=== PATIENT | female | born 1945 | race Two or more races ===

== ENCOUNTER 2018-03-03 21:06 | Emergency (ER) | payer MEDICARE, OTHER ==
[~2018-03-03] VITALS: Ht 157.5 cm; Wt 68.5 kg
[~2018-03-03 21:06] MED LIST: BUSP5TAB3 PO; CLID1CAP PO; FENO134C PO; GLYB2.5T4 PO; METO25TA20 PO; RIVA10TA PO; ROPI0.5T2 PO; VALS1TAB6 PO
[2018-03-03] MEDS ORDERED: ZOLP5TAB8 PO (21:15)
[2018-03-03] MEDS ORDERED: LIPA1CAP15 PO (21:15)
[2018-03-03] MEDS ORDERED: MELA3TAB PO (21:15)
[2018-03-03] MEDS ORDERED: ASPI-1169 PO (21:15)
[2018-03-03] MEDS ORDERED: ALPR0.5T8 PO (21:15)
[2018-03-03] MEDS ORDERED: LORA10TA7 PO (21:15)
[2018-03-03] MEDS ORDERED: CLON0.5T12 PO (21:15)
[2018-03-03] MEDS ORDERED: SIMV20TA6 PO (21:15)
[2018-03-03] MEDS ORDERED: BENZ1TAB7 PO (21:15)
[2018-03-03] MEDS ORDERED: ATEN50TA PO (21:15)
--- NOTE | 2018-03-03 21:16 | NUR ---
BB RA FROM HOME FOR WORSENING INVOLUNTARY MOVEMENTS OF MOUTH X 2 WKS. PT AO RR EVEN AND UNLABORED. NO SOB NOTED. NAD NOTED. NO NVD AT THIS TIME. PT PLACED ON MONITOR. PER DAUGHTER "PT DX WITH TARDIVE DYSKINESIA X 1 MONTH AGO THEN PLACED ON COGENTIN, THEN NOTED PT WITH WORSENING INVOLUNTARY MOVEMENTS. PT RECENTLY START ON BENZTROPINE AND CLONAZEPAM X 5 DAYS AGO"
--- NOTE | 2018-03-03 21:35 | NUR ---
LAB AT BEDSIDE FOR BLOOD DRAW
[2018-03-03 21:36] LABS: BASOPHILS % (AUTO) 0.1 % (0.0-2.0); EOSINOPHILS % (AUTO) 1.5 % (0.0-6.0); HEMATOCRIT 42 % (33-45); HEMOGLOBIN 14.1 g/dL (11.5-14.8); LYMPHOCYTES # (AUTO) 1.4 /CMM (0.8-4.8); LYMPHOCYTES % (AUTO) 14.4 % (20.0-44.0); MEAN CORPUSCULAR HGB CONC 34 g/dl (31.0-36.0); MEAN CORPUSCULAR VOLUME 77 fL (82-100); MONOCYTES # (AUTO) 0.8 /CMM (0.1-1.30); MONOCYTES % (AUTO) 8.9 % (2.0-12.0); NEUTROPHILS # (AUTO) 7.1 /CMM (1.8-8.9); NEUTROPHILS % (AUTO) 75.1 % (43.0-81.0); PLATELET COUNT (AUTO) 346 /CMM (150-450); RED BLOOD CELL COUNT(AUTO) 5.36 MIL/uL (4.0-5.2); WHITE BLOOD COUNT (AUTO) 9.4 K/uL (4.3-11.0)
[2018-03-03 21:46] LABS: CALCIUM, SERUM 8.6 mg/dL (8.5-10.1); CARBON DIOXIDE 29 mmol/L (21-32); CHLORIDE 104 mmol/L (98-107); CREATININE 0.9 mg/dL (0.6-1.3); GLUCOSE 98 mg/dL (74-106); POTASSIUM 3.8 mmol/L (3.5-5.1); SODIUM SERUM 141 mmol/L (136-145); UREA NITROGEN, BLOOD 10 mg/dL (7-18)
[2018-03-03 21:53] LABS: ALANINE AMINOTRANSFERASE 16 U/L (12-78); ALBUMIN 3.3 g/dL (3.4-5.0); ALKALINE PHOSPHATASE 41 U/L (46-116); ASPARTATE AMINOTRANSFERASE 16 U/L (15-37); BILIRUBIN,DIRECT 0.2 mg/dL (0.0-0.2); BILIRUBIN,TOTAL 1.1 mg/dL (0.2-1.0); TOTAL PROTEIN, SERUM 6.8 g/dL (6.4-8.2)
--- NOTE | 2018-03-03 22:12 | NUR ---
Dr. Bon Hill # [phone]
--- NOTE | 2018-03-03 23:27 | NUR ---
PER RISHABH OKAY TO GIVE PT WATER
--- NOTE | 2018-03-04 | NUR ---
SARIAH KEATING AT BEDSIDE SPEAKING TO PT REGARDING RESULTS.
--- NOTE | 2018-03-04 00:03 | NUR ---
Patient discharged to home in stable condition. Written and verbal after care instructions given. Patient verbalizes understanding of instruction. ambulatory with a steady gait. accompanied by daughter.
[2018-03-04 00:04] VITALS: BP 132/77
== END 2018-03-04 00:05 | disposition home or self-care (01) ==
LOC: ER 21:18
DX: G24.01 Drug induced subacute dyskinesia (principal); I10 Essential (primary) hypertension
CPT/HCPCS: 36415; 80048-TC; 80076-TC; 85025-TC; A4606; Z7610

== ENCOUNTER 2021-08-29 20:58 | Inpatient (IN) | payer MEDICARE, OTHER ==
[~2021-08-29] VITALS: Ht 157.5 cm; Wt 48.5 kg
[~2021-08-29 20:58] MED LIST changes: +ALPR0.5T8 PO; +ASPI-1169 PO; +ATEN50TA PO; +BENZ1TAB7 PO; -BUSP5TAB3 PO; -CLID1CAP PO; +CLON0.5T4 PO; -FENO134C PO; -GLYB2.5T4 PO; +LIPA1CAP15 PO; +LORA10TA7 PO; +MELA3TAB41 PO; -ROPI0.5T2 PO; +SIMV-46 PO; -VALS1TAB6 PO; +ZOLP5TAB8 PO
--- NOTE | 2021-08-29 21:30 | NUR ---
[id number] FROM HOME C/O RUQ ABD PAIN 2x DAYS. DENIES N/V/D. PATIENT ALERT AND ORIENTED X3. PATIENT ARRIVED ON STRETCHER, BUT IS USUALLY AMBULATORY AT HOME. DAUGHTER AT BEDSIDE FOR TRANSLATION.
--- NOTE | 2021-08-29 21:30 | NUR ---
BLOOD COLLECTED AND SENT TO LAB
--- NOTE | 2021-08-29 21:41 | NUR ---
URINE COLLECTED AND SENT TO LAB
[2021-08-29 21:46] LABS: BASOPHILS # (AUTO) 0.4 K/uL (0.0-0.2); BASOPHILS % (AUTO) 1.1 % (0.0-2.0); EOSINOPHILS % (AUTO) 1.6 % (0.0-6.0); HEMATOCRIT 47 % (33-45); HEMOGLOBIN 13.3 g/dL (11.5-14.8); LYMPHOCYTES # (AUTO) 1.4 K/uL (0.8-4.8); LYMPHOCYTES % (AUTO) 3.9 % (20.0-44.0); MEAN CORPUSCULAR HGB CONC 29 g/dl (31.0-36.0); MEAN CORPUSCULAR VOLUME 64 fL (82-100); MONOCYTES # (AUTO) 2.4 K/uL (0.1-1.30); MONOCYTES % (AUTO) 6.7 % (2.0-12.0); NEUTROPHILS % (AUTO) 86.7 % (43.0-81.0); PLATELET COUNT (AUTO) 608 K/uL (150-450); RED BLOOD CELL COUNT(AUTO) 7.32 MIL/uL (4.0-5.2)
[2021-08-29 21:52] LABS: WHITE BLOOD COUNT (AUTO) 35.7 K/uL (4.3-11.0)
--- NOTE | 2021-08-29 21:52 | NUR ---
WBC 35.7
[2021-08-29 21:55] LABS: CALCIUM, SERUM 8.4 mg/dL (8.5-10.1); CARBON DIOXIDE 28 mmol/L (21-32); CHLORIDE 107 mmol/L (98-107); GLUCOSE 181 mg/dL (74-106); SODIUM SERUM 143 mmol/L (136-145); UREA NITROGEN, BLOOD 53 mg/dL (7-18)
[2021-08-29] MEDS ORDERED: MEROPENEM 1,000 MG in IV NS 0.9% 100 ML IV ONE (22:00)
[2021-08-29] MEDS ORDERED: NS 0.9% IV ONE (22:00)
[2021-08-29 22:01] LABS: ALANINE AMINOTRANSFERASE 10 U/L (12-78); ALKALINE PHOSPHATASE 76 U/L (46-116); ASPARTATE AMINOTRANSFERASE 17 U/L (15-37); BILIRUBIN,DIRECT 0.2 mg/dL (0.0-0.2); BILIRUBIN,TOTAL 0.5 mg/dL (0.2-1.0); LIPASE 87 U/L (73-393)
[2021-08-29] MEDS ORDERED: MEROPENEM 1 G VIAL IV ONE (22:10)
[2021-08-29 22:13] LABS: BILIRUBIN,URINE SMALL (NEGATIVE); COLOR,URINE YELLOW (YELLOW); LEUKOCYTE ESTERASE ,URINE Negative (NEGATIVE); NITRITE, URINE Negative (NEGATIVE); PROTEIN,URINE 30 mg/dl (NEGATIVE); UGLUCOSE Negative (NEGATIVE); UROBILINOGEN,URINE 0.2 EU/dL (0.2)
[2021-08-29 22:17] LABS: BACTERIA,URINE Rare /HPF (None Seen); RBC,URINE NONE SEEN /HPF (0-2); SQUAMOUS EPITHELIAL CELL,UR Few /HPF (None Seen); WBC,URINE NONE SEEN /HPF (0-3)
[2021-08-29 22:26] LABS: LYMPHOCYTES % (MANUAL) 5 % (16-48); MONOCYTES % (MANUAL) 8 % (0-11.0); NEUTROPHILS % (MANUAL) 87 (42-76)
--- NOTE | 2021-08-29 22:36 | NUR ---
ULTRA SOUND AT BEDSIDE
--- NOTE | 2021-08-29 22:36 | NUR ---
COVID SWAB DONE AND SENT TO LAB
[2021-08-29] MEDS ORDERED: ASPIRIN 325 MG TABLET PO ONE (23:00)
--- NOTE | 2021-08-29 23:01 | NUR ---
PT RETURNED FROM CT
[2021-08-29] MEDS ORDERED: ASPIRIN 325 MG TABLET ONE (23:06)
[2021-08-30] MEDS ORDERED: IOHEXOL-300 100 ML VIAL IV ONE (00:18)
[2021-08-30] MEDS ORDERED: IV NS 0.9% 250 ML IV ONE (00:18)
[2021-08-30] MEDS ORDERED: CT SWABBABLE VALVE TRANS SET 1 EA INFUS.SET MC ONE (00:18)
--- NOTE | 2021-08-30 01:23 | NUR ---
PAGED DR PEREZ
--- NOTE | 2021-08-30 01:46 | NUR ---
RE PAGED DR PEREZ
--- NOTE | 2021-08-30 02:30 | NUR ---
DR MONTEZ ON THE PHONE W, DR PEREZ, SURGEON
--- NOTE | 2021-08-30 03:12 | NUR ---
REPORT GIVEN TO JOO VALENTE
[2021-08-30] MEDS ORDERED: Z GUARD REMEDY 2 OZ OINT TP PRN (03:30)
[2021-08-30] MEDS ORDERED: ONDANSETRON HCL/PF 4 MG/2 ML VIAL IVP PRN (03:30)
--- NOTE | 2021-08-30 03:51 | NUR ---
lizandro pt to 311
--- NOTE | 2021-08-30 03:52 | NUR ---
transferring pt via acls
[2021-08-30 04:00] VITALS: BP 109/58
[2021-08-30] MEDS ORDERED: LIPASE/PROTEASE/AMYLASE 1 EACH CAPSULE.DR PO PRN (04:00)
[2021-08-30 04:15] VITALS: BP 109/58
--- NOTE | 2021-08-30 04:15 | NUR ---
TELE/RN ADMITTING NOTE RECEIVED REPORT FROM JOB SITE SUPERVISOR BRYON. PATIENT ARRIVED TO UNIT VIA GURNEY AND 2 STAFF MEMBERS. PATIENT ACCOMPANIED TO ROOM 311-2 WITH ADMITTING DX OF NSTEMI AND PNA. PATIENT IS ALERT AND ORIENTED X 3. ABLE TO MAKE NEEDS KNOWN. PRIMARILY CYPRIOT SPEAKING BUT UNDERSTANDS SOME YORUBA. DENIES PAIN AT THIS TIME. O2 SATS BETWEEN 86-89% ON ROOM AIR. PATIENT PLACED ON 2L O2 VIA NC WITH O2 SATS BETWEEN 96-99%. NO S/SX OF RESPIRATORY DISTRESS NOTED. IV ACCESS TO LEFT AC #20G INTACT, PATENT AND SALINE LOCKED. TELE MONITOR CONNECTED WITH CURRENT READING SR HR 86. SKIN CHECK PERFORMED ON ADMISSION WITH NO SKIN ISSUES NOTED. PATIENT ORIENTED TO ROOM, CALL LIGHT AND UNIT. CALL LIGHT WITHIN REACH. ASPIRATION, FALL AND SAFETY PRECAUTIONS MAINTAINED. WILL CONTINUE TO MONITOR.
[2021-08-30] MEDS ORDERED: VANCOMYCIN 1 GM VIAL ONE (04:16)
[2021-08-30] MEDS: IV NS 0.9% 1,000 ML IV SCH ×2 (04:26→14:31)
[2021-08-30] MEDS ORDERED: VANCOMYCIN 1 GM in IV D5W 250ml IV ONE (04:30)
[2021-08-30] MEDS ORDERED: MEROPENEM 1 G in IV NS 0.9% 100 ML IV ONE (06:00)
[2021-08-30] MEDS ORDERED: MEROPENEM 1 G VIAL IV ONE (06:30)
--- NOTE | 2021-08-30 06:50 | NUR ---
TELE/RN CLOSING NOTE PATIENT CURRENTLY SLEEPING IN BED. ALERT AND ORIENTED X 3. ABLE TO MAKE NEEDS KNOWN. DENIES PAIN AT THIS TIME. CONTINUES ON 2L O2 VIA NC WITH NO S/SX OF RESPIRATORY DISTRESS NOTED. IV ACCESS TO LEFT AC #20G INTACT AND PATENT. CONTINUES ON IVF NS @ 100ML/HR. CONTINUES ON IV ABX. CALL LIGHT WITHIN REACH. ASPIRATION, FALL AND SAFETY PRECAUTIONS MAINTAINED. WILL ENDORSE PLAN OF CARE TO ONCOMING SHIFT.
--- NOTE | 2021-08-30 07:30 | NUR ---
FISH ROD MAKER OPENING NOTES RECEIVED PATIENT AWAKE IN BED IN NO ACUTE SIGNS OF DISTRESS. HOB ELEVATED. A/O X3. BENGALI SPEAKING, DENIES PAIN OR DISCOMFORTS AT THIS TIME. ON O2 VIA N/C @ 2LPM, TOLERATING WELL, BREATHING EVEN AND UNLABORED. ON TELE-MONITOR WITH CURRENT READING OF NSR, HR ON THE 80'S, NO C/O CARDIAC DISTRESS VOICED. IVF ON LAC G#20 INTACT AND PATENT WITH IVF OF NS @ 100ML/HR INFUSING WELL, NO S/SX OF INFILTRATION NOTED. SAFETY MEASURES IN PLACE: BED IN LOWEST LOCKED POSITION, SIDE RAILS UP X2 AND CALL LIGHT WITHIN REACH. WILL CONTINUE TO MONITOR PT ACCORDINGLY.
[2021-08-30 08:00] VITALS: BP 105/58
[2021-08-30] MEDS: LORATADINE 10 MG TABLET PO SCH (08:45)
[2021-08-30] MEDS: SIMVASTATIN 20 MG TABLET PO SCH (08:45)
[2021-08-30] MEDS: ASPIRIN 81 MG TAB.CHEW PO SCH (08:45)
[2021-08-30] MEDS: BENZTROPINE MESYLATE (1 MG) 1 MG TABLET PO SCH ×2 (08:45→17:02)
[2021-08-30] MEDS: LIPASE/PROTEASE/AMYLASE 1 EACH CAPSULE.DR PO SCH ×3 (08:46→17:02)
[2021-08-30] MEDS: METOPROLOL TARTRATE 25 MG TABLET PO SCH ×2 (08:47→21:24)
[2021-08-30] MEDS: ATENOLOL 50 MG TABLET PO SCH (08:48)
[2021-08-30] MEDS: clonazePAM 0.5 MG TABLET PO SCH (09:00)
[2021-08-30] MEDS ORDERED: ALPRAZOLAM 0.5 MG TABLET PO SCH (09:00)
--- NOTE | 2021-08-30 10:00 | NUR ---
RN NOTES LATEST TROPONIN TAKEN AT 0930 WAS 0.087 FROM 0.075, DR WHALEN MADE AWARE AND ACKNOWLEDGED.
--- NOTE | 2021-08-30 10:43 | NUR ---
RN NOTES PT SEEN AND EVALUATED BY DR CASTELLANOS WITH ORDER TO DO U/S OF SPLEEN.
[2021-08-30 12:00] VITALS: BP 107/59
[2021-08-30] MEDS ORDERED: MEROPENEM 1 G in IV NS 0.9% 100 ML IV SCH (13:00)
--- NOTE | 2021-08-30 13:21 | NUR ---
RN NOTES PT'S DAUGHTER BROUGHT PT'S HOME MEDICATION AUSTEDO 9MG FOR TARDIVE DYSKINESIA AND PT'S TAKING IT Q 12HRS. DR CASTELLANOS MADE AWARE WITH ORDER TO CONTINUE MEDICATION
[2021-08-30 16:00] VITALS: BP 110/57
[2021-08-30] MEDS: MEROPENEM 500 MG in IV NS 0.9% 100 ML IV SCH (17:03)
--- NOTE | 2021-08-30 18:19 | NUR ---
RN NOTES URINE SPECIMEN COLLECTED AND CALLED LAB TO DINING ROOM COORDINATOR THE SPECIMEN.
--- NOTE | 2021-08-30 18:41 | NUR ---
PRESS CUTTER CLOSING NOTES PATIENT IN BED RESTING AT MODERATE HIGH BACKREST POSITION. DAUGHTER AT BEDSIDE. A/O X2-3. COMORAN SPEAKING. CONFUSED ON AND OFF. MAINTAINED ON O2 VIA N/C @ 2LPM, TOLERATING WELL, BREATHING EVEN AND UNLABORED. ON TELE-MONITOR WITH CURRENT READING OF NSR, HR ON THE 80'S, NO C/O CARDIAC DISTRESS VOICED. IVF ACCESS ON LAC G#20 INTACT AND PATENT WITH IVF OF NS @ 100ML/HR AND IV ABX MERREM AT 33.33ML/HR INFUSING, NO S/SX OF INFILTRATION NOTED. ALL NEEDS AND CARE PROVIDED WELL. SAFETY MEASURES IN PLACE: BED IN LOWEST LOCKED POSITION, BED ALARM ON, SIDE RAILS UP X2 AND CALL LIGHT WITHIN REACH. WILL ENDORSE CONTINUITY OF CARE TO APPLICATIONS ENGINEERING MANAGER NURSE.
[2021-08-30 20:00] VITALS: BP 128/82
[2021-08-30] MEDS: AUSTEDO 9 MG PO SCH (22:00)
[2021-08-30] MEDS ORDERED: MELATONIN 3 MG TABLET PO SCH (22:00)
[2021-08-30] MEDS: ZOLPIDEM TARTRATE 5 MG TABLET PO PRN (22:07)
[2021-08-30 23:55] LABS: CREATININE, URINE 129.1 MG/DL (30.0-125.0); URINE TOTAL PROTEIN 88.8 mg/dL (0-11.9)
[2021-08-31] VITALS: BP 112/58
[2021-08-31] MEDS: IV NS 0.9% 1,000 ML IV SCH ×3 (00:51→14:23)
[2021-08-31 04:00] VITALS: BP 129/58
[2021-08-31] MEDS: MEROPENEM 500 MG in IV NS 0.9% 100 ML IV SCH ×2 (05:27→17:16)
[2021-08-31] MEDS: VANCOMYCIN 500 MG in IV D5W 100 ML IV SCH (05:30)
--- NOTE | 2021-08-31 05:58 | NUR ---
REGIONAL GUIDE NOTES AWAKE, STILL CONFUSED. NOT IN ANY DISTRESS. NO SOB NOTED. NO S/SX OF ANY PAIN OR DISCOMFORT AT THIS TIME. ON TELE SR @ 96 WITH IVF INFUSING WELL. AM CARE DONE. MONITORED ACCORDINGLY WITH SITTER AT BEDSIDE. CALL LIGHT WITHIN REACH. BED IN LOWEST POSITION. SR UP X 3 WITH BED ALARM ON FOR SAFETY. WILL ENDORSE TO NEXT SHIFT.
[2021-08-31 07:21] LABS: CALCIUM, SERUM 7.6 mg/dL (8.5-10.1); CARBON DIOXIDE 21 mmol/L (21-32); CHLORIDE 112 mmol/L (98-107); CREATININE 2.6 mg/dL (0.6-1.3); GLUCOSE 155 mg/dL (74-106); MAGNESIUM 2.5 mg/dL (1.8-2.4); PHOSPHORUS 4.5 mg/dL (2.5-4.9); POTASSIUM 4.5 mmol/L (3.5-5.1); SODIUM SERUM 144 mmol/L (136-145); UREA NITROGEN, BLOOD 44 mg/dL (7-18)
[2021-08-31 07:24] LABS: CHOLESTEROL 108 mg/dL (<200); HDL CHOLESTEROL 22 mg/dL (40-60); LDL 62 mg/dL (0-99); TRIGLYCERIDES 134 mg/dL (30-150)
--- NOTE | 2021-08-31 07:40 | NUR ---
RN OPENING NOTES Patient seen comfortably lying in bed, no SOB, no apparent distress noted, breathing even and unlabored, denies any pain or discomfort at this time. Call light left within reach, safety precautions in place, brakes locked, side rails up X 2, will monitor closely for any changes.
[2021-08-31 08:00] VITALS: BP 114/56
[2021-08-31 08:38] LABS: BASOPHILS # (AUTO) 0.4 K/uL (0.0-0.2); BASOPHILS % (AUTO) 1.2 % (0.0-2.0); EOSINOPHILS % (AUTO) 2.3 % (0.0-6.0); HEMATOCRIT 41 % (33-45); HEMOGLOBIN 11.6 g/dL (11.5-14.8); LYMPHOCYTES # (AUTO) 1.4 K/uL (0.8-4.8); LYMPHOCYTES % (AUTO) 4.1 % (20.0-44.0); MEAN CORPUSCULAR HGB CONC 29 g/dl (31.0-36.0); MEAN CORPUSCULAR VOLUME 65 fL (82-100); MONOCYTES # (AUTO) 2.4 K/uL (0.1-1.30); MONOCYTES % (AUTO) 7.3 % (2.0-12.0); NEUTROPHILS # (AUTO) 28.5 K/uL (1.8-8.9); NEUTROPHILS % (AUTO) 85.1 % (43.0-81.0); PLATELET COUNT (AUTO) 801 K/uL (150-450); RED BLOOD CELL COUNT(AUTO) 6.24 MIL/uL (4.0-5.2)
--- NOTE | 2021-08-31 09:25 | NUR ---
Received a call from laboratory spoke to Meseret, regarding patients WBC level which resulted to 33.5. Patient seen comfortably lying in bed, no apparent distress noted, afebrile, no chills noted, hospitalist made aware and acknowledged lab results, will continue to monitor for any changes.
[2021-08-31 09:27] LABS: WHITE BLOOD COUNT (AUTO) 33.5 K/uL (4.3-11.0)
[2021-08-31] MEDS: LORATADINE 10 MG TABLET PO SCH (10:21)
[2021-08-31] MEDS: ASPIRIN 81 MG TAB.CHEW PO SCH (10:21)
[2021-08-31] MEDS: SIMVASTATIN 20 MG TABLET PO SCH (10:21)
[2021-08-31] MEDS: LIPASE/PROTEASE/AMYLASE 1 EACH CAPSULE.DR PO SCH ×3 (10:21→17:10)
[2021-08-31] MEDS: BENZTROPINE MESYLATE (1 MG) 1 MG TABLET PO SCH ×2 (10:21→17:10)
[2021-08-31] MEDS: clonazePAM 0.5 MG TABLET PO SCH (10:21)
[2021-08-31] MEDS: ATENOLOL 50 MG TABLET PO SCH (10:22)
[2021-08-31] MEDS: METOPROLOL TARTRATE 25 MG TABLET PO SCH ×2 (10:22→20:26)
[2021-08-31] MEDS: AUSTEDO 9 MG PO SCH ×2 (10:23→20:26)
[2021-08-31 11:10] LABS: EOSINOPHILS % (MANUAL) 4 % (0-4); LYMPHOCYTES % (MANUAL) 4 % (16-48); MONOCYTES % (MANUAL) 7 % (0-11.0); NEUTROPHILS % (MANUAL) 85 (42-76)
[2021-08-31 12:00] VITALS: BP 112/61
[2021-08-31 16:00] VITALS: BP 103/56
[2021-08-31] MEDS: ACETAMINOPHEN 325 MG TABLET PO PRN (18:31)
--- NOTE | 2021-08-31 18:41 | NUR ---
RN CLOSING NOTES Patient in bed, AO X 1, with episodes of forgetfulness and confusion, reorientation provided as needed, no apparent distress noted, no SOB, respirations even and unlabored, no dizziness, no palpitations, denies any pain or discomfort. Due medications given per MD order, tolerating well. Aspiration precautions observed, frequent visual checks rendered, frequent repositioning done, all needs anticipated, kept clean and dry, call light left within reach, safety precautions in place, patient has a 1:1 sitter at bedside, brakes locked, side rails up X 2, will endorse to next shift for continuity of care.
--- NOTE | 2021-08-31 19:45 | NUR ---
telecom field technician opening notes Received Pt from morning nurse. Pt is resting in bed comfortably. Pt is A/O x 1, confused and forgetful. Respiration is normal in 4 L NC. No SOB. No S/S of distress noted. IV site at LAC# 20 is clean, intact and infusing well NS @ 100 ml/hr. Tele monitor showed SR hr at 80. No sitter at the bed side. safety precautions is maintained. Bed at low position, brakes locked, side rails upX3 and call light is within reach. Will continue to monitor.
[2021-08-31 20:00] VITALS: BP 126/57
--- NOTE | 2021-08-31 20:11 | NUR ---
putty and caulking supervisor notes Pt is seen and examined by Dr. Gaytan.
[2021-08-31] MEDS: ZOLPIDEM TARTRATE 5 MG TABLET PO PRN (21:55)
[2021-09-01] VITALS: BP 120/61
--- NOTE | 2021-09-01 00:50 | NUR ---
RN notes Pt's daughter named Anait called and asked about Pt's. Informed Pt's daughter, VS is stable, afebrile, took her meds and sleeping comfortably. Pt's daughter verbalize understanding and appreciate the info.
[2021-09-01 04:00] VITALS: BP_SYST 133; BP_DIAS 72; BP_DIAS 76
[2021-09-01] MEDS: IV NS 0.9% 1,000 ML IV SCH (04:30)
[2021-09-01] MEDS: MEROPENEM 500 MG in IV NS 0.9% 100 ML IV SCH ×2 (05:01→17:10)
[2021-09-01] MEDS: ACETAMINOPHEN 325 MG TABLET PO PRN ×2 (06:23→15:43)
--- NOTE | 2021-09-01 06:23 | NUR ---
RN notes Pt is moaning, restless and guarded. Administered tylenol 650 mg as ordered for pain. Safety precautions is maintained. Will continue to monitor.
[2021-09-01 06:27] LABS: BASOPHILS # (AUTO) 0.4 K/uL (0.0-0.2); BASOPHILS % (AUTO) 1.4 % (0.0-2.0); EOSINOPHILS % (AUTO) 1.2 % (0.0-6.0); HEMATOCRIT 41 % (33-45); HEMOGLOBIN 11.5 g/dL (11.5-14.8); LYMPHOCYTES # (AUTO) 1.4 K/uL (0.8-4.8); LYMPHOCYTES % (AUTO) 4.4 % (20.0-44.0); MEAN CORPUSCULAR HGB CONC 28 g/dl (31.0-36.0); MEAN CORPUSCULAR VOLUME 65 fL (82-100); MONOCYTES # (AUTO) 2.4 K/uL (0.1-1.30); MONOCYTES % (AUTO) 7.6 % (2.0-12.0); NEUTROPHILS # (AUTO) 26.6 K/uL (1.8-8.9); NEUTROPHILS % (AUTO) 85.4 % (43.0-81.0); RED BLOOD CELL COUNT(AUTO) 6.22 MIL/uL (4.0-5.2)
--- NOTE | 2021-09-01 06:35 | NUR ---
RN notes Received a phone call from Eliseo heredia. Eliseo informed Pt's WBC 31.2.
--- NOTE | 2021-09-01 06:35 | NUR ---
RN notes Called lab to get result for courtneyo. Awaiting for result.
--- NOTE | 2021-09-01 06:36 | NUR ---
RN notes Received a phone call from Eliseo herrera. Pt PLT is [phone].
[2021-09-01 06:38] LABS: PLATELET COUNT (AUTO) 928 K/uL (150-450); WHITE BLOOD COUNT (AUTO) 31.2 K/uL (4.3-11.0)
[2021-09-01 06:57] LABS: CALCIUM, SERUM 7.8 mg/dL (8.5-10.1); CARBON DIOXIDE 23 mmol/L (21-32); CHLORIDE 115 mmol/L (98-107); CREATININE 2.8 mg/dL (0.6-1.3); GLUCOSE 137 mg/dL (74-106); MAGNESIUM 2.5 mg/dL (1.8-2.4); PHOSPHORUS 4.7 mg/dL (2.5-4.9); POTASSIUM 4.8 mmol/L (3.5-5.1); SODIUM SERUM 148 mmol/L (136-145); UREA NITROGEN, BLOOD 43 mg/dL (7-18)
[2021-09-01 07:00] LABS: FERRITIN 130 ng/mL (8-388)
--- NOTE | 2021-09-01 07:00 | NUR ---
teleradiologist closing notes Pt is resting in bed comfortably. Pt is A/O x 1, confused and forgetful. Respiration is normal in 4 L NC. No SOB. No S/S of distress noted. VS is stable. IV site at L hand# 22 is clean, intact and infusing well NS @ 100 ml/hr. Tele monitor showed SR hr at 87. Routine meds were given as ordered. All need met and attended. Safety precautions is maintained. Bed at low position, brakes locked, side rails upX3 and call light is within reach. Will endorse to am nurse for BARTOLO.
[2021-09-01] MEDS: VANCOMYCIN 500 MG in IV D5W 100 ML IV SCH (07:18)
[2021-09-01 07:22] LABS: LYMPHOCYTES % (MANUAL) 3 % (16-48); MONOCYTES % (MANUAL) 3 % (0-11.0); NEUTROPHILS % (MANUAL) 94 (42-76)
--- NOTE | 2021-09-01 07:30 | NUR ---
RN OPENING NOTES: RECEIVED PATIENT IN BED LYING. VIETNAMESE SPEAKING PATIENT. ALERT AND ORIENTED TIMES 1. AWAKE AND RESPONDS UPON CALLING HER NAME.NO PAIN NOTED.NO FACIAL GRIMACING NOTED. BREATHING EVEN AND UNLABORED. NO SOB NOTED. NO RESPIRATORY DISTRESS NOTED. TELE PATIENT. SR = 86. SKIN INTACT AND PATENT .IV ON LEFT HAND # 22 INTACT AND PATENT.NO BLEEDING NO SWELLING NOTED. SAFETY MEASURES IN PLACE, BED IN THE LOWEST POSITION AND LOCKED. TABLE AND CALL LIGHT WITHIN REACH . WILL CONTINUE TO MONITOR.
[2021-09-01 08:00] VITALS: BP 111/62
[2021-09-01] MEDS: LIPASE/PROTEASE/AMYLASE 1 EACH CAPSULE.DR PO SCH ×4 (08:00→17:09)
[2021-09-01] MEDS: LORATADINE 10 MG TABLET PO SCH ×2 (08:19→09:00)
[2021-09-01] MEDS: clonazePAM 0.5 MG TABLET PO SCH ×2 (08:19→09:00)
[2021-09-01] MEDS: ASPIRIN 81 MG TAB.CHEW PO SCH ×2 (08:19→09:00)
[2021-09-01] MEDS: BENZTROPINE MESYLATE (1 MG) 1 MG TABLET PO SCH ×3 (08:19→17:09)
[2021-09-01] MEDS: ATENOLOL 50 MG TABLET PO SCH ×2 (08:20→09:00)
[2021-09-01] MEDS: AUSTEDO 9 MG PO SCH ×3 (08:31→21:05)
[2021-09-01] MEDS: SIMVASTATIN 20 MG TABLET PO SCH ×2 (08:34→09:00)
[2021-09-01] MEDS: METOPROLOL TARTRATE 25 MG TABLET PO SCH ×3 (08:35→21:00)
--- NOTE | 2021-09-01 09:30 | NUR ---
JOO NOTES DUE MEDS AT O800 AND 0900 NOT GIVEN DUE TO PATIENT IS SPITTING OUT AND PATIENT IS SLEEPY. Addendum: 09/01/21 at 1046 by AYALA BEDOYA RN CHARGE NURSE AWARE OF THE PATIENT CURRENT STATUS.
[2021-09-01] MEDS: IV 1/2NS 1000 ML 1,000 ML IV PRN ×2 (10:07→23:13)
[2021-09-01 10:44] LABS: IRON, SERUM 13 ug/dl (50-175); TOTAL IRON BINDING CAPACITY 386 ug/dl (250-450)
[2021-09-01 12:00] VITALS: BP 117/50
--- NOTE | 2021-09-01 12:33 | NUR ---
RN NOTES PATIENT'S IV ON LEFT HAND WAS NOTED TO BE LEAKING, REMOVED IV ACCESS, STARTED A NEW LINE ON PATIENT'S RIGHT HAND USING G#22 IV CATHETER. PATENT AND FLUSHES WELL.
[2021-09-01 16:00] VITALS: BP 110/60
--- NOTE | 2021-09-01 18:30 | NUR ---
RN CLOSING NOTES: PATIENT IN BED AWAKE. BENGALI SPEAKING PATIENT. ALERT AND ORIENTED TIMES 1. AWAKE AND RESPONDS UPON CALLING HER NAME.NO PAIN NOTED.NO FACIAL GRIMACING NOTED. BREATHING EVEN AND UNLABORED. NO SOB NOTED. NO RESPIRATORY DISTRESS NOTED. TELE PATIENT. SR = 91 SKIN INTACT AND PATENT .IV ON RIGHT HAND # 22 INTACT AND PATENT.NO BLEEDING NO SWELLING NOTED. SAFETY MEASURES IN PLACE, BED IN THE LOWEST POSITION AND LOCKED. TABLE AND CALL LIGHT WITHIN REACH . MEDS GIVEN ORDERED. TOLERATED WELL.LAUREL ENDORSE TO ONCOMING NURSE FOR CONTINUOUS OF THE CARE.
--- NOTE | 2021-09-01 19:30 | NUR ---
TELE/RN OPENING NOTE RECEIVED PATIENT SLEEPING IN BED. ALERT AND ORIENTED X 1. PRIMARILY YAKUT SPEAKING. NO S/SX OF PAIN NOTED AT THIS TIME. CONTINUES ON O2 4L VIA NC WITH NO S/SX OF RESPIRATORY DISTRESS NOTED. IV ACCESS TO RIGHT HAND #22G INTACT AND PATENT. CONTINUES ON IVF 1/2 NS @ 100ML/HR. CONTINUES ON IV ABX. CALL LIGHT WITHIN REACH. ASPIRATION, FALL AND SAFETY PRECAUTIONS MAINTAINED. WILL CONTINUE TO MONITOR.
[2021-09-01 20:00] VITALS: BP 99/44
[2021-09-02] VITALS (8 sets, daily range): BP systolic 94–140; BP diastolic 51–92
[2021-09-02] MEDS: ACETAMINOPHEN 325 MG TABLET PO PRN ×2 (01:00→15:04)
--- NOTE | 2021-09-02 01:07 | NUR ---
TELE/RN NOTE PATIENT WITH S/SX OF PAIN - MOANING, RESTLESS. ADMINISTERED PRN TYLENOL WITH PENDING EFFECT.
[2021-09-02] MEDS: ZOLPIDEM TARTRATE 5 MG TABLET PO PRN ×2 (01:52→21:52)
[2021-09-02] MEDS: VANCOMYCIN 500 MG in IV D5W 100 ML IV SCH (05:00)
[2021-09-02] MEDS: MEROPENEM 500 MG in IV NS 0.9% 100 ML IV SCH ×2 (05:56→17:11)
--- NOTE | 2021-09-02 06:30 | NUR ---
TELE/RN CLOSING NOTE PATIENT CURRENTLY RESTING IN BED. AWAKE, ALERT AND ORIENTED X 1. PRIMARILY SALVADOREAN SPEAKING. NO S/SX OF PAIN NOTED AT THIS TIME. CONTINUES ON O2 4L VIA NC WITH NO S/SX OF RESPIRATORY DISTRESS NOTED. IV ACCESS TO RIGHT HAND #22G INTACT AND PATENT. CONTINUES ON IVF 1/ NS @ 100ML/HR. CONTINUES ON IV ABX. CALL LIGHT WITHIN REACH. ASPIRATION, FALL AND SAFETY PRECAUTIONS MAINTAINED. WILL ENDORSE PLAN OF CARE TO ONCOMING SHIFT.
--- NOTE | 2021-09-02 07:20 | NUR ---
MS RN OPENING NOTE RECEIVED PT A/O X1, IN SEMI-FOWLERS POSITION ON 4L NC WITH NO S/SX OF ACUTE RESPIRATORY DISTRESS AT THIS TIME. PT HAS A RIGHT HAND 22G RUNNING [employer]. SAFETY MEASURES IN PLACE WITH BED IN LOWEST LOCKED POSITION, SIDE RAILS UP X3, CALL LIGHT WITHIN REACH, AND BED ALARM ON.
[2021-09-02] MEDS: ATENOLOL 50 MG TABLET PO SCH (08:24)
[2021-09-02] MEDS: clonazePAM 0.5 MG TABLET PO SCH (08:24)
[2021-09-02] MEDS: SIMVASTATIN 20 MG TABLET PO SCH (08:24)
[2021-09-02] MEDS: FERROUS SULFATE (325 MG) 325 MG/TAB TABLET PO SCH ×2 (08:24→16:46)
[2021-09-02] MEDS: LIPASE/PROTEASE/AMYLASE 1 EACH CAPSULE.DR PO SCH ×3 (08:24→17:11)
[2021-09-02] MEDS: ASPIRIN 81 MG TAB.CHEW PO SCH (08:24)
[2021-09-02] MEDS: BENZTROPINE MESYLATE (1 MG) 1 MG TABLET PO SCH ×2 (08:24→16:46)
[2021-09-02] MEDS: LORATADINE 10 MG TABLET PO SCH (08:25)
[2021-09-02] MEDS: METOPROLOL TARTRATE 25 MG TABLET PO SCH ×2 (08:25→21:52)
--- NOTE | 2021-09-02 08:30 | NUR ---
MS RN NOTE PT IV PULLED OUT. NO S/SX OF BLEEDING OR INFILTRATION.
[2021-09-02] MEDS: AUSTEDO 9 MG PO SCH ×2 (08:40→21:51)
--- NOTE | 2021-09-02 09:50 | NUR ---
MS RN NOTE MIDLINE INSERTION ORDERED PER LAB REQUEST. MD NOTIFIED AND NURSING MEDICAL DOCTOR MD APPROVED.
[2021-09-02 13:02] LABS: BASOPHILS # (AUTO) 0.6 K/uL (0.0-0.2); BASOPHILS % (AUTO) 1.3 % (0.0-2.0); EOSINOPHILS % (AUTO) 1.3 % (0.0-6.0); HEMATOCRIT 44 % (33-45); HEMOGLOBIN 12.5 g/dL (11.5-14.8); LYMPHOCYTES # (AUTO) 1.3 K/uL (0.8-4.8); MEAN CORPUSCULAR HGB CONC 29 g/dl (31.0-36.0); MEAN CORPUSCULAR VOLUME 65 fL (82-100); MONOCYTES # (AUTO) 1.7 K/uL (0.1-1.30); MONOCYTES % (AUTO) 3.8 % (2.0-12.0); NEUTROPHILS # (AUTO) 40.7 K/uL (1.8-8.9); NEUTROPHILS % (AUTO) 90.6 % (43.0-81.0); RED BLOOD CELL COUNT(AUTO) 6.74 MIL/uL (4.0-5.2)
[2021-09-02 13:15] LABS: PLATELET COUNT (AUTO) 1364 K/uL (150-450); WHITE BLOOD COUNT (AUTO) 44.9 K/uL (4.3-11.0)
--- NOTE | 2021-09-02 13:25 | NUR ---
MS RN NOTE RECEIVED CRITICAL LAB, WBC 44.9 AND PLT 1364. NOTIFIED.
--- NOTE | 2021-09-02 15:05 | NUR ---
MS RN NOTE PT COMPLAINING OF GENERALIZED PAIN. DAUGHTER AT BEDSIDE TO TRANSLATE. GAVE PRN TYLENOL.
[2021-09-02 15:36] LABS: ALANINE AMINOTRANSFERASE 7 U/L (12-78); ALBUMIN 2.8 g/dL (3.4-5.0); ALKALINE PHOSPHATASE 70 U/L (46-116); ASPARTATE AMINOTRANSFERASE 23 U/L (15-37); BILIRUBIN,TOTAL 0.5 mg/dL (0.2-1.0); CALCIUM, SERUM 8.4 mg/dL (8.5-10.1); CARBON DIOXIDE 22 mmol/L (21-32); CHLORIDE 111 mmol/L (98-107); CREATININE 3.1 mg/dL (0.6-1.3); GLUCOSE 138 mg/dL (74-106); PHOSPHORUS 4.9 mg/dL (2.5-4.9); POTASSIUM 5.1 mmol/L (3.5-5.1); SODIUM SERUM 146 mmol/L (136-145); TOTAL PROTEIN, SERUM 6.7 g/dL (6.4-8.2); UREA NITROGEN, BLOOD 49 mg/dL (7-18)
[2021-09-02] MEDS: IV 1/2NS 1000 ML 1,000 ML IV PRN (15:56)
[2021-09-02] MEDS: ALLOPURINOL 100 MG TABLET PO SCH (16:46)
[2021-09-02] MEDS: HYDROXYUREA 500 MG CAPSULE PO SCH (17:11)
--- NOTE | 2021-09-02 18:48 | NUR ---
RN CLOSING NOTE PT LAYING IN BED. DAUGHTER WAS JUST HERE AND FED HER SOUP, STATES PT IS CONFUSED AND "NOT HERSELF". PT IS ON 4L NC, APPLIED PAPER TAPE TO DISCOURAGE REMOVAL, WITH NO S/SX OF ACUTE RESPIRATORY DISTRESS. PT HAS 1/2 NS RUNNING @100ML/HR ON CYNDY MIDLINE 18G. PT HAD ONE BM ON SHIFT AND URINATED TWICE. SAFETY MEASURES IN PLACE WITH SIDE RAILS UP X2, BED IN LOWEST LOCKED POSITION, CALL LIGHT WITHIN REACH. WILL ENDORSE TO NEXT SHIFT FOR CONTINUITY OF CARE.
--- NOTE | 2021-09-02 19:30 | NUR ---
MS/RN OPENING NOTE RECEIVED PATIENT RESTING IN BED. AWAKE, ALERT AND ORIENTED X 1. FAMILY CURRENTLY AT BEDSIDE. DENIES PAIN AT THIS TIME. CONTINUES ON O2 3L VIA NC WITH NO S/SX OF RESPIRATORY DISTRESS NOTED. IV ACCESS TO RIGHT UPPER ARM MIDLINE #18G INTACT AND PATENT. CONTINUES ON IVF 1/2 NS @ 100ML/HR. CONTINUES ON IV ABX. CALL LIGHT WITHIN REACH. ASPIRATION, FALL AND SAFETY PRECAUTIONS MAINTAINED. WILL CONTINUE TO MONITOR.
[2021-09-02 20:09] LABS: BAND % (MANUAL) 6 % (0.0-5.0); LYMPHOCYTES % (MANUAL) 4 % (16-48); MONOCYTES % (MANUAL) 1 % (0-11.0); NEUTROPHILS % (MANUAL) 89 (42-76)
--- NOTE | 2021-09-02 21:16 | NUR ---
MS/RN NOTE NEW ORDER FROM DR. TAPIA FOR CONSENT FOR BONE MARROW BIOPSY AND ASPIRATION. CALLED DAUGHTER, WASHINGTON TO OBTAIN CONSENT WITH SECOND NURSE. PER DAUGHTER, W[place], SHE DOES NOT WANT HER MOTHER TO HAVE THE BIOPSY DONE. SHE FEELS IT IS "TOO MUCH" FOR HER MOTHER. WILL ENDORSE TO AM RN.
[2021-09-02 21:17] LABS: MAGNESIUM 2.3 mg/dL (1.8-2.4)
--- NOTE | 2021-09-02 21:30 | NUR ---
MS/RN NOTE PATIENTS DAUGHTER, WASHINGTON, CALLED BACK REQUESTING TO CONSENT TO BONE MARROW BIOPSY AND ASPIRATION. SECOND RN, BRAN, VERIFIED CONSENT. CONSENT PLACED IN CHART.
[2021-09-03] MEDS: VANCOMYCIN 500 MG in IV D5W 100 ML IV SCH (06:06)
--- NOTE | 2021-09-03 06:20 | NUR ---
MS/RN CLOSING NOTE PATIENT CURRENTLY SLEEPING IN BED. ALERT AND ORIENTED X 1. DENIES PAIN AT THIS TIME. CONTINUES ON O2 3L VIA NC WITH NO S/SX OF RESPIRATORY DISTRESS NOTED. IV ACCESS TO RIGHT UPPER ARM MIDLINE #18G INTACT AND PATENT. CONTINUES ON IVF 1/2 NS @ 100ML/HR. CONTINUES ON IV ABX. CALL LIGHT WITHIN REACH. ASPIRATION, FALL AND SAFETY PRECAUTIONS MAINTAINED. WILL ENDORSE PLAN OF CARE TO ONCOMING SHIFT.
--- NOTE | 2021-09-03 06:30 | NUR ---
MS/RN NOTE PATIENT HAS NOT VOIDED THIS SHIFT. BLADDER SCAN SHOWS 390ML. ABDOMEN IS SOFT AND NON-TENDER. PLACED CALL TO DOBBY LOOMS PEGGER MD POOL. AWAITING RESPONSE.
[2021-09-03 06:39] LABS: OCCULT BLOOD STOOL POSITIVE (NEGATIVE)
[2021-09-03] MEDS: MEROPENEM 500 MG in IV NS 0.9% 100 ML IV SCH ×2 (06:59→17:17)
[2021-09-03] MEDS ORDERED: LIDOCAINE 1% INJ 50 ML MDV IJ ONE (07:00)
[2021-09-03 07:01] LABS: URIC ACID 12.7 mg/dL (2.6-7.2)
[2021-09-03 07:04] LABS: ALANINE AMINOTRANSFERASE 6 U/L (12-78); ALBUMIN 2.5 g/dL (3.4-5.0); ALKALINE PHOSPHATASE 68 U/L (46-116); ASPARTATE AMINOTRANSFERASE 24 U/L (15-37); BILIRUBIN,TOTAL 0.4 mg/dL (0.2-1.0); CALCIUM, SERUM 7.9 mg/dL (8.5-10.1); CARBON DIOXIDE 18 mmol/L (21-32); CHLORIDE 110 mmol/L (98-107); CREATININE 3.1 mg/dL (0.6-1.3); GLUCOSE 147 mg/dL (74-106); MAGNESIUM 2.2 mg/dL (1.8-2.4); PHOSPHORUS 4.2 mg/dL (2.5-4.9); POTASSIUM 4.7 mmol/L (3.5-5.1); SODIUM SERUM 143 mmol/L (136-145); TOTAL PROTEIN, SERUM 5.8 g/dL (6.4-8.2); UREA NITROGEN, BLOOD 50 mg/dL (7-18)
--- NOTE | 2021-09-03 07:41 | NUR ---
RN OPENING NOTE- PATIENT RESTING IN BED. AWAKE, ALERT AND ORIENTED X 1. SOME CONFUSION AND ANXIETY NOTED. CONTINUES ON O2 3L VIA NC WITH NO S/SX OF RESPIRATORY DISTRESS NOTED. IV ACCESS TO RIGHT UPPER ARM MIDLINE #18G INTACT AND PATENT. CONTINUES ON IVF 1/2 NS @ 100ML/HR. CONTINUES ON IV ABX. CALL LIGHT WITHIN REACH. ASPIRATION, FALL AND SAFETY PRECAUTIONS MAINTAINED. WILL CONTINUE TO MONITOR.
[2021-09-03] MEDS: ASPIRIN 81 MG TAB.CHEW PO SCH (08:18)
[2021-09-03] MEDS: SIMVASTATIN 20 MG TABLET PO SCH (08:19)
[2021-09-03] MEDS: ALLOPURINOL 100 MG TABLET PO SCH (08:19)
[2021-09-03] MEDS: BENZTROPINE MESYLATE (1 MG) 1 MG TABLET PO SCH ×2 (08:19→17:09)
[2021-09-03] MEDS: clonazePAM 0.5 MG TABLET PO SCH (08:20)
[2021-09-03] MEDS: FERROUS SULFATE (325 MG) 325 MG/TAB TABLET PO SCH ×2 (08:20→17:09)
[2021-09-03] MEDS: LORATADINE 10 MG TABLET PO SCH (08:20)
[2021-09-03] MEDS: LIPASE/PROTEASE/AMYLASE 1 EACH CAPSULE.DR PO SCH ×3 (08:20→17:10)
[2021-09-03] MEDS: METOPROLOL TARTRATE 25 MG TABLET PO SCH ×2 (08:25→21:00)
[2021-09-03] MEDS: AUSTEDO 9 MG PO SCH ×2 (08:26→21:37)
[2021-09-03] MEDS: HYDROXYUREA 500 MG CAPSULE PO SCH (08:26)
[2021-09-03 08:28] LABS: BASOPHILS # (AUTO) 0.5 K/uL (0.0-0.2); EOSINOPHILS % (AUTO) 1.1 % (0.0-6.0); HEMATOCRIT 45 % (33-45); HEMOGLOBIN 12.5 g/dL (11.5-14.8); LYMPHOCYTES # (AUTO) 1.2 K/uL (0.8-4.8); LYMPHOCYTES % (AUTO) 2.6 % (20.0-44.0); MEAN CORPUSCULAR HGB CONC 28 g/dl (31.0-36.0); MEAN CORPUSCULAR VOLUME 66 fL (82-100); MONOCYTES # (AUTO) 1.8 K/uL (0.1-1.30); MONOCYTES % (AUTO) 3.7 % (2.0-12.0); NEUTROPHILS # (AUTO) 43.3 K/uL (1.8-8.9); NEUTROPHILS % (AUTO) 91.6 % (43.0-81.0); RED BLOOD CELL COUNT(AUTO) 6.82 MIL/uL (4.0-5.2)
[2021-09-03 08:48] VITALS: BP 154/74
--- NOTE | 2021-09-03 08:57 | NUR ---
RN NOTE- LIDOCAINE NOT ADMINISTERED DUE TO IT BEING FOR BIOPSY LATER.
[2021-09-03] MEDS ORDERED: BUMETANIDE INJ 8 MG in IV NS 0.9% 48 ML IV ONE (09:00)
[2021-09-03 10:00] VITALS: BP 154/74
[2021-09-03 10:24] LABS: WHITE BLOOD COUNT (AUTO) 47.3 K/uL (4.3-11.0)
[2021-09-03 10:25] LABS: PLATELET COUNT (AUTO) 1024 K/uL (150-450)
[2021-09-03 11:51] LABS: EOSINOPHILS % (MANUAL) 1 % (0-4); LYMPHOCYTES % (MANUAL) 4 % (16-48); MONOCYTES % (MANUAL) 2 % (0-11.0); NEUTROPHILS % (MANUAL) 93 (42-76)
[2021-09-03] MEDS ORDERED: MORPHINE SULFATE INJ 2 MG/ML DISP.SYRIN IV STA (13:17)
--- NOTE | 2021-09-03 14:00 | NUR ---
RN NOTE- BONE MARROW BIOPSY COMPLETED W DR TAPIA
--- NOTE | 2021-09-03 14:12 | NUR ---
RN NOTE-MORPHINE 1MG ORDERED X ONE DOSE FOR BIOPSY. ADMINISTERED W DR TAPIA PRESENT. BIOPSY COMPLETED. RECORDED WASTE W RN AND DISPOSED OF VIAL BUT DIDN'T SCAN ADMINISTRATION,.
[2021-09-03 15:17] LABS: BASOPHILS # (AUTO) 0.5 K/uL (0.0-0.2); BASOPHILS % (AUTO) 1.2 % (0.0-2.0); EOSINOPHILS % (AUTO) 0.6 % (0.0-6.0)
[2021-09-03 15:22] LABS: HEMATOCRIT 41 % (33-45); LYMPHOCYTES % (AUTO) 2.2 % (20.0-44.0); MEAN CORPUSCULAR HGB CONC 29 g/dl (31.0-36.0); MEAN CORPUSCULAR VOLUME 63 fL (82-100); MONOCYTES # (AUTO) 1.6 K/uL (0.1-1.30); MONOCYTES % (AUTO) 3.6 % (2.0-12.0); NEUTROPHILS # (AUTO) 40.2 K/uL (1.8-8.9); NEUTROPHILS % (AUTO) 92.4 % (43.0-81.0); RED BLOOD CELL COUNT(AUTO) 6.49 MIL/uL (4.0-5.2)
[2021-09-03 15:36] LABS: PLATELET COUNT (AUTO) 1328 K/uL (150-450)
[2021-09-03 15:37] LABS: WHITE BLOOD COUNT (AUTO) 43.6 K/uL (4.3-11.0)
[2021-09-03] MEDS: SODIUM BICARBONATE 650 MG TABLET PO SCH ×2 (16:02→17:11)
[2021-09-03 16:06] VITALS: BP 121/58
[2021-09-03 17:30] LABS: BAND % (MANUAL) 8 % (0.0-5.0); EOSINOPHILS % (MANUAL) 1 % (0-4); LYMPHOCYTES % (MANUAL) 2 % (16-48); MONOCYTES % (MANUAL) 7 % (0-11.0); NEUTROPHILS % (MANUAL) 82 (42-76)
[2021-09-03] MEDS: ACETAMINOPHEN 325 MG TABLET PO PRN (17:34)
--- NOTE | 2021-09-03 17:36 | NUR ---
RN NOTE- PT W DISCOMFORT. TYLENOL 650 MG ADMINISTERED
--- NOTE | 2021-09-03 19:04 | NUR ---
RN CLOSING NOTE- PT IN BED W FAMILY AT BEDSIDE. ATE 50% MEAL. COMFORTABLE IN NO DISTRESS. VOIDING AND BM. INCONTINENT CARE PROVIDED. CRITICAL LABS NOTED AND PASSED ON TO PHYSICIANS. SIDE RAILS UP, BED LOCKED, CALL LIGHT CLOSE,. MONITOR ASSIST
--- NOTE | 2021-09-03 19:40 | NUR ---
MS RN OPENING NOTE PATIENT RESTING IN BED, EASILY AWAKENED, ALERT AND ORIENTED X 1. PT ON 3L OF OXYGEN VIA NC, NO S/S OF RESPIRATORY DISTRESS OR SOB NOTED, BREATHING EVEN AND UNLABORED. IV ACCESS TO RIGHT UPPER ARM MIDLINE #18G INTACT AND PATENT RUNNING MERREM @ 33 ML/HR. SAFETY AND ASPIRATION PRECAUTIONS IN PLACE: BED LOCKED IN LOW POSITION, SIDE RAILS UP X 3, HOB ELEVATED, BED ALARM ON. WILL CONTINUE TO MONITOR
[2021-09-03 20:00] VITALS: BP 99/71
[2021-09-03 23:42] VITALS: BP 128/63
[2021-09-04] MEDS ORDERED: VANCOMYCIN 500 MG in IV D5W 100 ML IV SCH (06:00)
[2021-09-04] MEDS: MEROPENEM 500 MG in IV NS 0.9% 100 ML IV SCH (06:05)
[2021-09-04 07:03] LABS: BASOPHILS # (AUTO) 0.5 K/uL (0.0-0.2); BASOPHILS % (AUTO) 1.4 % (0.0-2.0); EOSINOPHILS % (AUTO) 2.8 % (0.0-6.0); HEMATOCRIT 43 % (33-45); HEMOGLOBIN 12.5 g/dL (11.5-14.8); LYMPHOCYTES # (AUTO) 1.2 K/uL (0.8-4.8); LYMPHOCYTES % (AUTO) 3.4 % (20.0-44.0); MEAN CORPUSCULAR HGB CONC 29 g/dl (31.0-36.0); MEAN CORPUSCULAR VOLUME 64 fL (82-100); MONOCYTES # (AUTO) 1.2 K/uL (0.1-1.30); MONOCYTES % (AUTO) 3.6 % (2.0-12.0); NEUTROPHILS # (AUTO) 29.8 K/uL (1.8-8.9); NEUTROPHILS % (AUTO) 88.8 % (43.0-81.0); RED BLOOD CELL COUNT(AUTO) 6.74 MIL/uL (4.0-5.2)
--- NOTE | 2021-09-04 07:37 | NUR ---
RN OPENING NOTE PATIENT IN BED RESTING, A/O X1, PALESTINIAN SPEAKING, APPEARS COMFORTABLE. ON 3L OF OXYGEN VIA NC, NO DISTRESS OR SHORTNESS OF BREATH NOTED. IV RIGHT UPPER ARM MIDLINE#18G INTACT AND PATENT. SAFETY MEASURES IN PLACE, SIDE RAILS RAISED, BED ALARM ON, BED IN LOW AND LOCK POSITION. CALL LIGHT WITHIN REACH. WILL CONTINUE TO MONITOR
--- NOTE | 2021-09-04 07:39 | NUR ---
MS RN CLOSING NOTES PATIENT SLEEPING IN BED, APPEARS COMFORTABLE AND NOT IN ANY DISTRESS. NO SIGNIFICANT CHANGES THROUGHOUT SHIFT. PT ON 3L OF OXYGEN VIA NC, NO S/S OF RESPIRATORY DISTRESS OR SOB NOTED, BREATHING EVEN AND UNLABORED. IV ACCESS TO RIGHT UPPER ARM MIDLINE #18G INTACT AND PATENT RUNNING MERREM @ 33 ML/HR. MEDICATIONS GIVEN ORDERED. PATIENT NEEDS MET THROUGHOUT SHIFT. SAFETY AND ASPIRATION PRECAUTIONS IN PLACE: BED LOCKED IN LOW POSITION, SIDE RAILS UP X 3, HOB ELEVATED, BED ALARM ON. ENDORSED TO DAY SHIFT NURSE FOR CONTINUITY OF CARE
[2021-09-04 07:42] LABS: ALBUMIN 2.2 g/dL (3.4-5.0); ALKALINE PHOSPHATASE 61 U/L (46-116); ASPARTATE AMINOTRANSFERASE 19 U/L (15-37); BILIRUBIN,TOTAL 0.3 mg/dL (0.2-1.0); CALCIUM, SERUM 8.2 mg/dL (8.5-10.1); CARBON DIOXIDE 21 mmol/L (21-32); CHLORIDE 112 mmol/L (98-107); GLUCOSE 165 mg/dL (74-106); MAGNESIUM 2.5 mg/dL (1.8-2.4); PHOSPHORUS 6.4 mg/dL (2.5-4.9); POTASSIUM 4.3 mmol/L (3.5-5.1); SODIUM SERUM 145 mmol/L (136-145); TOTAL PROTEIN, SERUM 5.4 g/dL (6.4-8.2); UREA NITROGEN, BLOOD 58 mg/dL (7-18)
[2021-09-04 08:00] VITALS: BP 122/58
[2021-09-04 08:05] LABS: PLATELET COUNT (AUTO) 1215 K/uL (150-450); WHITE BLOOD COUNT (AUTO) 33.6 K/uL (4.3-11.0)
[2021-09-04 08:09] LABS: ALANINE AMINOTRANSFERASE 7 U/L (12-78)
--- NOTE | 2021-09-04 08:31 | NUR ---
RN NOTE LAB CALLED FOR CRITICAL LAB VALUES, WBC OF 33.6 AND PLT OF 1215. MD AWARE. WILL CONTINUE TO MONITOR.
[2021-09-04] MEDS: SIMVASTATIN 20 MG TABLET PO SCH (08:38)
[2021-09-04] MEDS: SODIUM BICARBONATE 650 MG TABLET PO SCH ×3 (08:38→17:16)
[2021-09-04] MEDS: ALLOPURINOL 100 MG TABLET PO SCH (08:39)
[2021-09-04] MEDS: METOPROLOL TARTRATE 25 MG TABLET PO SCH ×2 (08:39→21:00)
[2021-09-04] MEDS: LORATADINE 10 MG TABLET PO SCH (08:40)
[2021-09-04] MEDS: clonazePAM 0.5 MG TABLET PO SCH (08:40)
[2021-09-04] MEDS: HYDROXYUREA 500 MG CAPSULE PO SCH (08:40)
[2021-09-04] MEDS: AUSTEDO 9 MG PO SCH ×2 (08:40→21:58)
[2021-09-04] MEDS: ASPIRIN 81 MG TAB.CHEW PO SCH (08:40)
[2021-09-04] MEDS: LIPASE/PROTEASE/AMYLASE 1 EACH CAPSULE.DR PO SCH ×3 (08:41→17:17)
[2021-09-04] MEDS: BENZTROPINE MESYLATE (1 MG) 1 MG TABLET PO SCH ×2 (08:41→17:17)
[2021-09-04] MEDS: FERROUS SULFATE (325 MG) 325 MG/TAB TABLET PO SCH ×2 (08:41→17:16)
[2021-09-04 09:07] LABS: LYMPHOCYTES % (MANUAL) 3 % (16-48); MONOCYTES % (MANUAL) 3 % (0-11.0); NEUTROPHILS % (MANUAL) 94 (42-76)
[2021-09-04] MEDS ORDERED: LEVOFLOXACIN (250MG) 250 MG TABLET PO ONE (13:30)
[2021-09-04] MEDS: Sodium Bicarbonate 50 MEQ in IV 1/2NS 1000 ML 1,000 ML IV PRN (14:36)
[2021-09-04 16:51] VITALS: BP 105/62
[2021-09-04] MEDS: MAG HYDROX/AL HYDROX/SIMETH 30 ML UDC PO PRN (17:52)
--- NOTE | 2021-09-04 18:12 | NUR ---
RN CLOSING NOTES PATIENT AWAKE IN BED RESTING, A/O X1, SERBIAN SPEAKING, APPEARS COMFORTABLE. ON 3L OF OXYGEN VIA NC, NO DISTRESS OR SHORTNESS OF BREATH NOTED. IV RIGHT UPPER ARM MIDLINE #18G INTACT AND PATENT. SAFETY MEASURES IN PLACE, SIDE RAILS RAISED, BED ALARM ON, BED IN LOW AND LOCK POSITION. CALL LIGHT WITHIN REACH. WILL ENDORSE TO SAFETY SITTER.
[2021-09-04 20:00] VITALS: BP 115/59
[2021-09-04] MEDS ORDERED: ALPRAZOLAM 0.5 MG TABLET PO PRN (20:30)
--- NOTE | 2021-09-04 20:30 | NUR ---
MS RN NOTE PATIENT'S DAUGHTER STATED THAT PT IS EXPERIENCING A LOT ANXIETY, SAID SHE TAKES XANAX 0.[address] CONTA[address] GALLEGOS REGARDING THIS WITH NEW ORDER FOR XANAX O.5 MG PO PRN DAILY FOR ANXIETY. ORDER READBACK AND CONFIRMED, ORDER CARRIED OUT
[2021-09-04] MEDS: ZOLPIDEM TARTRATE 5 MG TABLET PO PRN (22:04)
--- NOTE | 2021-09-04 22:44 | NUR ---
MS RN OPENING NOTE PATIENT SITTING IN CHAIR WITH DAUGHTER AT BEDSIDE, ALERT AND ORIENTED X 2. PT ON ROOM AIR, NO S/S OF RESPIRATORY DISTRESS OR SOB NOTED, BREATHING EVEN AND UNLABORED. IV ACCESS TO RIGHT UPPER ARM MIDLINE #18G INTACT AND PATENT RUNNING SODIUM BICARBONATE IN 1/2 NS @60 ML/HR. SAFETY AND ASPIRATION PRECAUTIONS IN PLACE: BED LOCKED IN LOW POSITION, SIDE RAILS UP X 3, HOB ELEVATED, BED ALARM ON. WILL CONTINUE TO MONITOR Addendum: 09/04/21 at 6444 by PAULO LOVE RN TIME WRONG, CORRECT TIME 1950
[2021-09-05] MEDS: ACETAMINOPHEN 325 MG TABLET PO PRN ×2 (04:08→14:28)
[2021-09-05] MEDS ORDERED: VANCOMYCIN 500 MG in IV D5W 100 ML IV SCH (06:00)
[2021-09-05 06:42] LABS: BASOPHILS # (AUTO) 0.1 K/uL (0.0-0.2); BASOPHILS % (AUTO) 0.5 % (0.0-2.0); EOSINOPHILS % (AUTO) 2.4 % (0.0-6.0); HEMATOCRIT 38 % (33-45); HEMOGLOBIN 11.2 g/dL (11.5-14.8); LYMPHOCYTES # (AUTO) 0.8 K/uL (0.8-4.8); LYMPHOCYTES % (AUTO) 2.8 % (20.0-44.0); MEAN CORPUSCULAR HGB CONC 30 g/dl (31.0-36.0); MEAN CORPUSCULAR VOLUME 63 fL (82-100); MONOCYTES # (AUTO) 0.5 K/uL (0.1-1.30); NEUTROPHILS # (AUTO) 25.1 K/uL (1.8-8.9); NEUTROPHILS % (AUTO) 92.3 % (43.0-81.0); PLATELET COUNT (AUTO) 635 K/uL (150-450); RED BLOOD CELL COUNT(AUTO) 5.91 MIL/uL (4.0-5.2); WHITE BLOOD COUNT (AUTO) 27.1 K/uL (4.3-11.0)
[2021-09-05 06:44] LABS: CALCIUM, SERUM 7.9 mg/dL (8.5-10.1); CARBON DIOXIDE 22 mmol/L (21-32); CHLORIDE 108 mmol/L (98-107); CREATININE 2.6 mg/dL (0.6-1.3); GLUCOSE 178 mg/dL (74-106); POTASSIUM 4.1 mmol/L (3.5-5.1); SODIUM SERUM 142 mmol/L (136-145); UREA NITROGEN, BLOOD 59 mg/dL (7-18)
--- NOTE | 2021-09-05 07:15 | NUR ---
MS RN CLOSING NOTES PATIENT AWAKE IN BED. PATIENT DID NOT SLEEP ALL NIGHT AND WAS VERY RESTLESS AND TRYING TO GET OUT OF BED DESPITE PRN'S GIVEN. PT ON 3L OF OXYGEN VIA NC, NO S/S OF RESPIRATORY DISTRESS OR SOB NOTED, BREATHING EVEN AND UNLABORED. IV ACCESS TO RIGHT UPPER ARM MIDLINE #18G INTACT AND PATENT RUNNING MERREM SODIUM BICARB IN 1/2 NS @ 60 ML/HR. MEDICATIONS GIVEN ORDERED. PATIENT NEEDS MET THROUGHOUT SHIFT. SAFETY AND ASPIRATION PRECAUTIONS IN PLACE: BED LOCKED IN LOW POSITION, SIDE RAILS UP X 3, HOB ELEVATED, BED ALARM ON. ENDORSED TO DAY SHIFT NURSE FOR CONTINUITY OF CARE
[2021-09-05 08:00] VITALS: BP_SYST 114; BP_SYST 123; BP_DIAS 81; BP_DIAS 83
[2021-09-05] MEDS: Sodium Bicarbonate 50 MEQ in IV 1/2NS 1000 ML 1,000 ML IV PRN ×2 (08:42→21:48)
[2021-09-05] MEDS: AUSTEDO 9 MG PO SCH ×2 (08:54→21:22)
[2021-09-05] MEDS: HYDROXYUREA 500 MG CAPSULE PO SCH (08:55)
[2021-09-05] MEDS: SIMVASTATIN 20 MG TABLET PO SCH (08:55)
[2021-09-05] MEDS: FERROUS SULFATE (325 MG) 325 MG/TAB TABLET PO SCH ×2 (08:55→17:55)
[2021-09-05] MEDS: SODIUM BICARBONATE 650 MG TABLET PO SCH ×3 (08:56→17:55)
[2021-09-05] MEDS: LIPASE/PROTEASE/AMYLASE 1 EACH CAPSULE.DR PO SCH ×3 (08:56→17:55)
[2021-09-05] MEDS: ASPIRIN 81 MG TAB.CHEW PO SCH (08:56)
[2021-09-05] MEDS: LORATADINE 10 MG TABLET PO SCH (08:56)
[2021-09-05] MEDS: BENZTROPINE MESYLATE (1 MG) 1 MG TABLET PO SCH ×2 (08:56→17:55)
[2021-09-05] MEDS: clonazePAM 0.5 MG TABLET PO SCH (08:58)
[2021-09-05] MEDS: METOPROLOL TARTRATE 25 MG TABLET PO SCH ×2 (08:58→21:23)
--- NOTE | 2021-09-05 09:30 | NUR ---
transferred to rm. 309-1 to enable her to have a sitter.
--- NOTE | 2021-09-05 10:50 | NUR ---
[facility] rn calling to get pt. status.maryam here and aware.
--- NOTE | 2021-09-05 15:06 | NUR ---
dtr.requests to speak to md.rn nickersoned demar dash np.additionally dtr. wants different sedative.given tylenol 650 mg po at this time to help relax pt.
[2021-09-05] MEDS ORDERED: ALPRAZOLAM 0.25 MG TABLET PO PRN (15:30)
[2021-09-05 16:00] VITALS: BP 120/80
--- NOTE | 2021-09-05 16:15 | NUR ---
given xanax 0.5 mg for agitation.
--- NOTE | 2021-09-05 18:00 | NUR ---
DTR. IN TO VISIT WITHREST OF FAMILY.
--- NOTE | 2021-09-05 19:35 | NUR ---
RN MS OPENING NOTE RECEIVED PATIENT IN BED WITH DAUGHTER AT BEDSIDE, ALERT AND ORIENTED X 2. PT ON ROOM AIR, NO S/S OF RESPIRATORY DISTRESS OR SOB NOTED, BREATHING EVEN AND UNLABORED. IV ACCESS TO RIGHT UPPER ARM MIDLINE INTACT AND PATENT RUNNING SODIUM BICARBONATE IN 1/2 NS @60 ML/HR. SAFETY AND ASPIRATION PRECAUTIONS IN PLACE: BED LOCKED IN LOW POSITION, SIDE RAILS UP X 3, HOB ELEVATED, BED ALARM ON. WILL CONTINUE TO MONITOR PATIENT ACCORDINGLY
[2021-09-05 20:00] VITALS: BP 125/73
[2021-09-05] MEDS: MAGNESIUM HYDROXIDE 30 ML UDC PO PRN (20:01)
--- NOTE | 2021-09-05 20:05 | NUR ---
RN MS NOTES PER FAMILY, PATIENT WAS COMPLAINING OF HYPERACIDITY AND ABD. DISCOMFORT. MAALOS PRN GIVEN ORDERED
[2021-09-05] MEDS: CALCIUM CARBONATE 500 MG TAB.CHEW PO SCH (21:00)
[2021-09-05] MEDS ORDERED: QUETIAPINE FUMARATE 25 MG TABLET PO SCH (22:00)
[2021-09-06 06:11] LABS: BASOPHILS # (AUTO) 0.3 K/uL (0.0-0.2); BASOPHILS % (AUTO) 1.4 % (0.0-2.0); EOSINOPHILS % (AUTO) 3.1 % (0.0-6.0); HEMATOCRIT 38 % (33-45); HEMOGLOBIN 11.3 g/dL (11.5-14.8); LYMPHOCYTES # (AUTO) 0.9 K/uL (0.8-4.8); LYMPHOCYTES % (AUTO) 3.8 % (20.0-44.0); MEAN CORPUSCULAR HGB CONC 30 g/dl (31.0-36.0); MEAN CORPUSCULAR VOLUME 63 fL (82-100); MONOCYTES # (AUTO) 0.5 K/uL (0.1-1.30); MONOCYTES % (AUTO) 2.1 % (2.0-12.0); NEUTROPHILS # (AUTO) 21.3 K/uL (1.8-8.9); NEUTROPHILS % (AUTO) 89.6 % (43.0-81.0); RED BLOOD CELL COUNT(AUTO) 6.03 MIL/uL (4.0-5.2); WHITE BLOOD COUNT (AUTO) 23.8 K/uL (4.3-11.0)
--- NOTE | 2021-09-06 06:24 | NUR ---
MS RN CLOSING NOTES PATIENT AWAKE IN BED. A/O X1. BENGALI SPEAKING, NO S/S OF RESPIRATORY DISTRESS OR SOB NOTED, BREATHING EVEN AND UNLABORED. IV ACCESS TO RIGHT UPPER ARM MIDLINE #18G INTACT AND PATENT RUNNING SODIUM BICARB IN 1/2 NS @ 60 ML/HR. MEDICATIONS GIVEN ORDERED. PATIENT NEEDS MET THROUGHOUT SHIFT. SAFETY AND ASPIRATION PRECAUTIONS IN PLACE: BED LOCKED IN LOW POSITION, SIDE RAILS UP X 3, HOB ELEVATED, BED ALARM ON. ENDORSED TO DAY SHIFT NURSE FOR CONTINUITY OF CARE
[2021-09-06 06:41] LABS: PLATELET COUNT (AUTO) 1060 K/uL (150-450)
--- NOTE | 2021-09-06 07:30 | NUR ---
MS RN OPENING NOTES RECEIVED PATIENT AWAKE IN BED AND A/O X1. NICARAGUAN SPEAKING. ON O2 AT 3LPM VIA NASAL CANNULA. NO SOB NOTED. NOT IN DISTRESS. WITH IV ACCESS AT RIGHT UPPER ARM MIDLINE #18G INTACT AND PATENT RUNNING SODIUM BICARB IN 1/2 NS @ 60 ML/HR INFUSING WELL. SAFETY AND ASPIRATION PRECAUTIONS IN PLACE: CALL LIGHT WITHIN REACH. BED ON LOWEST AND LOCKED POSITION, SIDE RAILS UP X 3, HOB ELEVATED, BED ALARM ON. WILL CONTINUE TO MONITOR.
[2021-09-06 07:37] LABS: EOSINOPHILS % (MANUAL) 3 % (0-4); LYMPHOCYTES % (MANUAL) 4 % (16-48); MONOCYTES % (MANUAL) 5 % (0-11.0); NEUTROPHILS % (MANUAL) 88 (42-76)
[2021-09-06 08:00] VITALS: BP 122/62
[2021-09-06] MEDS: FERROUS SULFATE (325 MG) 325 MG/TAB TABLET PO SCH ×2 (08:41→16:45)
[2021-09-06] MEDS: AUSTEDO 9 MG PO SCH ×2 (08:41→20:38)
[2021-09-06] MEDS: SIMVASTATIN 20 MG TABLET PO SCH (08:42)
[2021-09-06] MEDS: LIPASE/PROTEASE/AMYLASE 1 EACH CAPSULE.DR PO SCH ×3 (08:42→17:25)
[2021-09-06] MEDS: ASPIRIN 81 MG TAB.CHEW PO SCH (08:42)
[2021-09-06] MEDS: clonazePAM 0.5 MG TABLET PO SCH (08:42)
[2021-09-06] MEDS: CALCIUM CARBONATE 500 MG TAB.CHEW PO SCH ×3 (08:43→22:07)
[2021-09-06] MEDS: BENZTROPINE MESYLATE (1 MG) 1 MG TABLET PO SCH ×2 (08:43→16:45)
[2021-09-06] MEDS: SODIUM BICARBONATE 650 MG TABLET PO SCH ×3 (08:43→16:45)
[2021-09-06] MEDS: METOPROLOL TARTRATE 25 MG TABLET PO SCH ×2 (08:43→20:38)
[2021-09-06] MEDS: ALLOPURINOL 100 MG TABLET PO SCH (08:44)
[2021-09-06] MEDS: LORATADINE 10 MG TABLET PO SCH (08:46)
[2021-09-06] MEDS ORDERED: HYDROXYUREA 500 MG CAPSULE PO SCH (09:00)
[2021-09-06] MEDS: MAG HYDROX/AL HYDROX/SIMETH 30 ML UDC PO PRN ×2 (11:14→19:27)
[2021-09-06] MEDS: LEVOFLOXACIN (250MG) 250 MG TABLET PO SCH (12:52)
--- NOTE | 2021-09-06 18:51 | NUR ---
MS RN CLOSING NOTES PATIENT RESTING IN BED AND A/O X1. ALGERIAN SPEAKING. ON O2 AT 3LPM VIA NASAL CANNULA. NO SOB NOTED. NOT IN DISTRESS. WITH IV ACCESS AT RIGHT UPPER ARM MIDLINE #18G, SWOLLEN. FOR DUPLEX VENOUS RIGHT UPPER EXTREMITY FOR EDEMA TO EVALUATE IF THE LINE IS STILL GOOD TO USE. SAFETY AND ASPIRATION PRECAUTIONS IN PLACE: CALL LIGHT WITHIN REACH. BED ON LOWEST AND LOCKED POSITION, SIDE RAILS UP X 3, HOB ELEVATED, BED ALARM ON. WILL ENDORSE TO NEXT SHIFT FOR BARTOLO.
--- NOTE | 2021-09-06 19:31 | NUR ---
MS RN OPENING NOTES RECEIVED PATIENT RESTING IN BED,A/O X1. [place] SPEAKING. ON O2 AT 3LPM VIA NASAL CANNULA. NO SOB NOTED. NOT IN DISTRESS. BREATHING EVEN AND UNLABORED. WITH IV ACCESS AT RIGHT UPPER ARM MIDLINE #18G, SWOLLEN. DUPLEX VENOUS RIGHT UPPER EXTREMITY FOR EDEMA WAS ONGOING AT THIS TIME TO EVALUATE IF THE LINE IS STILL GOOD. SAFETY AND ASPIRATION PRECAUTIONS IN PLACE: CALL LIGHT WITHIN EASY REACH. BED ON LOWEST AND LOCKED POSITION, SIDE RAILS UP X 3, HOB ELEVATED, BED ALARM ON. WILL CONTINUE TO MONITOR PT. ACCORDINGLY
--- NOTE | 2021-09-06 19:39 | NUR ---
RN NOTES PER FAMILY PATIENT IS COMPLAINING OF GASTRIC DISTRESS AT THIS TIME, WAS REQUESTING FOR MAALOX. PRN MAALOX GIVEN ORDERED
--- NOTE | 2021-09-06 19:45 | NUR ---
RN NOTES Send the result of patient's Right upper extremity Venous Doppler to [facility] , Dr. Lundberg ordered to start Heparin drip for non ACS . he also ordered labs in am and BMP tonight, order noted and carried out
--- NOTE | 2021-09-06 20:35 | NUR ---
RN NOTES Right upper arm midline was removed , patient is a hardstick waiting for RICKEY nurse to come up to insert a line
[2021-09-06 20:49] LABS: CALCIUM, SERUM 8.5 mg/dL (8.5-10.1); CARBON DIOXIDE 25 mmol/L (21-32); CHLORIDE 105 mmol/L (98-107); CREATININE 2.3 mg/dL (0.6-1.3); GLUCOSE 168 mg/dL (74-106); POTASSIUM 4.8 mmol/L (3.5-5.1); SODIUM SERUM 140 mmol/L (136-145); UREA NITROGEN, BLOOD 54 mg/dL (7-18)
[2021-09-06] MEDS ORDERED: HEPARIN INFUSION/D5W 500 ML IV PRN (21:00)
[2021-09-06] MEDS ORDERED: HEPARIN SODIUM, PORCINE 5000 UNITS/1 ML VIAL IV ONE (21:00)
--- NOTE | 2021-09-06 21:00 | NUR ---
RN NOTES PER FAMILY PATIENT CANNOT CHEW HER TUMS MEDS. AND PATIENT JUST GOT HER PRN MAALOX AT [id number]. WILL CONTINUE TO MONITOR PATIENT
--- NOTE | 2021-09-06 21:00 | NUR ---
RN NOTES RICKEY charge nurse tried to insert an IV access but was never successful. will try again later
--- NOTE | 2021-09-06 22:12 | NUR ---
RN NOTES PATIENT NOTED WITH DISCOMFORT ON HER ABDOMEN, GUARDING BX NOTED. TUMS GIVEN ORDERED, CRUSHED AND MIX WITH SMALL AMOUNT OF APPLE SAUCE. WILL CONTINUE TO MONITOR PATIENT
[2021-09-06] MEDS: ZOLPIDEM TARTRATE 5 MG TABLET PO PRN (23:41)
--- NOTE | 2021-09-06 23:50 | NUR ---
RN NOTES ER nurse came and inserted an IV access on the left hand #22
[2021-09-07] MEDS ORDERED: IV LR 1000 ML 1,000 ML IV ONE
--- NOTE | 2021-09-07 00:15 | NUR ---
RN NOTES Heparin drip started running @ 1000u/hr, will continue to monitor
[2021-09-07] MEDS ORDERED: HEPARIN SODIUM, PORCINE 5000 UNITS/1 ML VIAL ONE (00:18)
[2021-09-07] MEDS: MAG HYDROX/AL HYDROX/SIMETH 30 ML UDC PO PRN ×2 (03:58→17:29)
--- NOTE | 2021-09-07 03:58 | NUR ---
RN NOTES PATIENT COMPLAINS OF ABD. DISCOMFORT, WAS POINTING ON HER STOMACH WITH FACIAL GRIMACE. MAALOX GIVEN PRN
[2021-09-07] MEDS: ACETAMINOPHEN 325 MG TABLET PO PRN (04:31)
--- NOTE | 2021-09-07 04:35 | NUR ---
RN NOTES PATIENT NOTED STILL WITH DISCOMFORT ON HER ABDOMEN. PRN ACETAMINOPHEN GIVEN ORDERED. ABDOMEN SOFT AND NON- DISTENDED, WITH ACTIVE BOWEL SOUNDS NOTED. WILL CONTINUE TO MONITOR
--- NOTE | 2021-09-07 06:48 | NUR ---
MS RN CLOSING NOTES RECEIVED PATIENT RESTING IN BED,A/O X1. WOLOF SPEAKING. ON O2 AT 3LPM VIA NASAL CANNULA. NO SOB NOTED. NOT IN DISTRESS. BREATHING EVEN AND UNLABORED. PT. WITH IV ACCESS AT LEFT HAND G#22 ON HEPARIN DRIP 1000 UNITS/20 ML/HR, INTACT AND PATENT. SAFETY AND ASPIRATION PRECAUTIONS IN PLACE: CALL LIGHT WITHIN EASY REACH. BED ON LOWEST AND LOCKED POSITION, SIDE RAILS UP X 3, HOB ELEVATED, BED ALARM ON. WILL ENDORSED PATIENT TO DAY SHIFT FOR CONTINUITY OF CARE.
--- NOTE | 2021-09-07 06:50 | NUR ---
RN-NOTES Dr. Lundberg, came and ordered to stop the hepatin drip order noted and carried out
--- NOTE | 2021-09-07 07:43 | NUR ---
MS RN OPENING NOTES RECEIVED PATIENT IN BED, AWAKE, A/O X1, CONFUSED, SCREAMING. PATIENT ON OXYGEN THERAPY AT 3 LPM VIA NASAL CANULA, BREATHING EVEN AND UNLABORED, NO SOB NOTED AT THIS TIME. NO COMPLAINS OF PAIN. L HAND IV ACCESS G #22 PRESENT AND INTACT RUNNING LR @ 75 CC/HR. SAFETY PRECAUTIONS IN PLACE; BED N LOW POSITION AND LOCKED, RAILS UP X2, CALL LIGHT WITHIN REACH. WILL CONTINUE TO MONITOR PATIENT.
[2021-09-07 08:32] LABS: BASOPHILS # (AUTO) 0.3 K/uL (0.0-0.2); BASOPHILS % (AUTO) 1.3 % (0.0-2.0); EOSINOPHILS % (AUTO) 2.4 % (0.0-6.0); HEMATOCRIT 38 % (33-45); HEMOGLOBIN 11.2 g/dL (11.5-14.8); LYMPHOCYTES # (AUTO) 0.9 K/uL (0.8-4.8); MEAN CORPUSCULAR HGB CONC 30 g/dl (31.0-36.0); MEAN CORPUSCULAR VOLUME 63 fL (82-100); MONOCYTES # (AUTO) 0.6 K/uL (0.1-1.30); MONOCYTES % (AUTO) 2.7 % (2.0-12.0); NEUTROPHILS # (AUTO) 19.2 K/uL (1.8-8.9); NEUTROPHILS % (AUTO) 89.6 % (43.0-81.0); RED BLOOD CELL COUNT(AUTO) 5.97 MIL/uL (4.0-5.2); WHITE BLOOD COUNT (AUTO) 21.4 K/uL (4.3-11.0)
[2021-09-07 08:40] LABS: PLATELET COUNT (AUTO) 1107 K/uL (150-450)
[2021-09-07 08:46] LABS: ALANINE AMINOTRANSFERASE 15 U/L (12-78); ALBUMIN 2.5 g/dL (3.4-5.0); ALKALINE PHOSPHATASE 67 U/L (46-116); ASPARTATE AMINOTRANSFERASE 24 U/L (15-37); BILIRUBIN,TOTAL 0.5 mg/dL (0.2-1.0); CALCIUM, SERUM 8.1 mg/dL (8.5-10.1); CARBON DIOXIDE 26 mmol/L (21-32); CHLORIDE 106 mmol/L (98-107); CREATININE 2.1 mg/dL (0.6-1.3); GLUCOSE 152 mg/dL (74-106); POTASSIUM 4.2 mmol/L (3.5-5.1); SODIUM SERUM 141 mmol/L (136-145); TOTAL PROTEIN, SERUM 5.7 g/dL (6.4-8.2); UREA NITROGEN, BLOOD 50 mg/dL (7-18)
[2021-09-07 10:09] LABS: URIC ACID 9.6 mg/dL (2.6-7.2)
[2021-09-07] MEDS: BENZTROPINE MESYLATE (1 MG) 1 MG TABLET PO SCH ×2 (10:16→16:16)
[2021-09-07] MEDS: CALCIUM CARBONATE 500 MG TAB.CHEW PO SCH ×2 (10:16→20:59)
[2021-09-07] MEDS: LIPASE/PROTEASE/AMYLASE 1 EACH CAPSULE.DR PO SCH ×3 (10:16→17:25)
[2021-09-07] MEDS: FERROUS SULFATE (325 MG) 325 MG/TAB TABLET PO SCH ×2 (10:16→16:16)
[2021-09-07] MEDS: ALLOPURINOL 100 MG TABLET PO SCH (10:16)
[2021-09-07] MEDS: SIMVASTATIN 20 MG TABLET PO SCH (10:16)
[2021-09-07] MEDS: ASPIRIN 81 MG TAB.CHEW PO SCH (10:16)
[2021-09-07] MEDS: clonazePAM 0.5 MG TABLET PO SCH (10:16)
[2021-09-07] MEDS: LORATADINE 10 MG TABLET PO SCH (10:16)
[2021-09-07] MEDS: AUSTEDO 9 MG PO SCH ×2 (10:17→21:00)
[2021-09-07] MEDS: HYDROXYUREA 500 MG CAPSULE PO SCH (10:17)
[2021-09-07] MEDS: METOPROLOL TARTRATE 25 MG TABLET PO SCH ×2 (10:18→21:01)
[2021-09-07] MEDS: APIXABAN 2.5 MG TABLET PO SCH ×2 (10:18→16:17)
[2021-09-07 12:26] LABS: LYMPHOCYTES % (MANUAL) 5 % (16-48); MONOCYTES % (MANUAL) 2 % (0-11.0); NEUTROPHILS % (MANUAL) 93 (42-76)
[2021-09-07] MEDS: MAGNESIUM HYDROXIDE 30 ML UDC PO PRN (12:32)
--- NOTE | 2021-09-07 18:37 | NUR ---
MS RN CLOSING NOTES PATIENT REMAINS IN BED, ASLEEP, A/O X1. PATIENT ON OXYGEN THERAPY AT 3 LPM VIA NASAL CANULA, BREATHING EVEN AND UNLABORED, NO SOB NOTED DURING SHIFT. NO COMPLAINS OF PAIN. L HAND IV ACCESS G #22 PRESENT AND INTACT; SL. ALL NEEDS ATTENDED DURING THE DAY. SAFETY PRECAUTIONS IN PLACE; BED N LOW POSITION AND LOCKED, RAILS UP X2, CALL LIGHT WITHIN REACH. WILL ENDORSE TO BREADING MACHINE TENDER NURSE FOR [place].
--- NOTE | 2021-09-07 19:25 | NUR ---
RN OPENING NOTES: RECEIVED PATIENT SLEEP IN BED COMFORTABLY, BED IN LOW POSITION, CALL LIGHTS WITHIN REACH, NO COMPLAIN OF PAIN AND DISCOMFORT AT THIS TIME, PATIENT A/OX1 [place] SPEAKING, ON PUREED DIET WITH L HAND #22 NO IV FLUID AT THIS TIME, NO BP ON RIGHT ARM + WITH DVT, PATIENT ON PUREED DIET, WITH !:1 SITTER , KEPT CLEAN AND DRY, ALL NEEDS MET, WILL CONTINUE TO MONITOR.
[2021-09-07] MEDS: ZOLPIDEM TARTRATE 5 MG TABLET PO PRN (21:20)
[2021-09-07 22:25] VITALS: BP 135/73
[2021-09-08] MEDS: ACETAMINOPHEN 325 MG TABLET PO PRN ×2 (00:27→23:22)
--- NOTE | 2021-09-08 06:49 | NUR ---
RN CLOSING NOTES: PATIENT SLEEP IN BED COMFORTABLY, BED IN LOW POSITION, CALL LIGHTS WITHIN REACH, NO COMPLAIN OF PAIN AND DISCOMFORT AT THIS TIME, HOB AT 45 DEGREE, WITH O2 INHALATION AT 3LPM NO SOB NOTED, PATIENT WITH 1:1 SITTER, PATIENT KEPT CLEAN AND DRY ALL NEED MET, ENDORSE TO INCOMING SHIFT.
[2021-09-08 08:00] VITALS: BP 115/63
[2021-09-08] MEDS: METOPROLOL TARTRATE 25 MG TABLET PO SCH ×2 (09:00→21:20)
[2021-09-08] MEDS: FERROUS SULFATE (325 MG) 325 MG/TAB TABLET PO SCH ×2 (09:31→18:38)
[2021-09-08] MEDS: CALCIUM CARBONATE 500 MG TAB.CHEW PO SCH ×2 (09:31→21:19)
[2021-09-08] MEDS: BENZTROPINE MESYLATE (1 MG) 1 MG TABLET PO SCH ×2 (09:31→18:38)
[2021-09-08] MEDS: LIPASE/PROTEASE/AMYLASE 1 EACH CAPSULE.DR PO SCH ×4 (09:31→18:43)
[2021-09-08] MEDS: ASPIRIN 81 MG TAB.CHEW PO SCH (09:31)
[2021-09-08] MEDS: ALLOPURINOL 100 MG TABLET PO SCH (09:31)
[2021-09-08] MEDS: LORATADINE 10 MG TABLET PO SCH (09:31)
[2021-09-08] MEDS: SIMVASTATIN 20 MG TABLET PO SCH (09:32)
[2021-09-08] MEDS: clonazePAM 0.5 MG TABLET PO SCH (09:32)
[2021-09-08] MEDS: APIXABAN 2.5 MG TABLET PO SCH ×2 (09:39→18:39)
[2021-09-08] MEDS: AUSTEDO 9 MG PO SCH ×2 (09:42→21:19)
[2021-09-08] MEDS: HYDROXYUREA 500 MG CAPSULE PO SCH (09:42)
[2021-09-08 10:59] LABS: BASOPHILS # (AUTO) 0.3 K/uL (0.0-0.2); BASOPHILS % (AUTO) 2.2 % (0.0-2.0); EOSINOPHILS % (AUTO) 2.5 % (0.0-6.0); HEMATOCRIT 41 % (33-45); LYMPHOCYTES # (AUTO) 0.7 K/uL (0.8-4.8); LYMPHOCYTES % (AUTO) 5.3 % (20.0-44.0); MEAN CORPUSCULAR HGB CONC 29 g/dl (31.0-36.0); MEAN CORPUSCULAR VOLUME 65 fL (82-100); MONOCYTES # (AUTO) 0.5 K/uL (0.1-1.30); MONOCYTES % (AUTO) 3.7 % (2.0-12.0); NEUTROPHILS # (AUTO) 11.6 K/uL (1.8-8.9); NEUTROPHILS % (AUTO) 86.3 % (43.0-81.0); RED BLOOD CELL COUNT(AUTO) 6.28 MIL/uL (4.0-5.2); WHITE BLOOD COUNT (AUTO) 13.4 K/uL (4.3-11.0)
[2021-09-08 11:18] LABS: CALCIUM, SERUM 8.5 mg/dL (8.5-10.1); CARBON DIOXIDE 28 mmol/L (21-32); CHLORIDE 107 mmol/L (98-107); GLUCOSE 152 mg/dL (74-106); POTASSIUM 4.7 mmol/L (3.5-5.1); SODIUM SERUM 143 mmol/L (136-145); UREA NITROGEN, BLOOD 47 mg/dL (7-18)
[2021-09-08 11:45] LABS: PLATELET COUNT (AUTO) 1042 K/uL (150-450)
[2021-09-08 12:00] VITALS: BP 97/50
[2021-09-08] MEDS: LEVOFLOXACIN (250MG) 250 MG TABLET PO SCH ×2 (13:00→14:48)
[2021-09-08 13:27] LABS: URIC ACID 9.6 mg/dL (2.6-7.2)
[2021-09-08 16:00] VITALS: BP 114/55
--- NOTE | 2021-09-08 18:00 | NUR ---
DTR. OR FAMILY MEMBER AT BEDSIDE MOST OF DAY.
[2021-09-08] MEDS: MAG HYDROX/AL HYDROX/SIMETH 30 ML UDC PO PRN (19:25)
--- NOTE | 2021-09-08 19:30 | NUR ---
MS RN OPENING NOTES: RECEIVED PATIENT AWAKE IN BED AMBULATING ACCOMPANIED BY DAUGHTER NO SOB OR ANY RESP DISTRESS OBSERVED, PATIENT IS A/O X1 Y[place] SPEAKING, ON CRUSH MEDICATION WITH LHAND #22, PATIENT KEPT CLEAN AND DRY, ALL NEEDS MET, WILL CONTINUE TO MONITOR.
[2021-09-08 22:00] VITALS: BP 134/63
[2021-09-08] MEDS: ZOLPIDEM TARTRATE 5 MG TABLET PO PRN (22:08)
--- NOTE | 2021-09-09 06:48 | NUR ---
RN CLOSING NOTES: PATIENT AWAKE IN BED, BED IN LOW POSITION, CALL LIGHTS WITHIN REACH, PATIENT WITH INTERRUPTED SLEEP, ON O2 AT 3LPM NO SOB OR ANY RESP DISTRESS OBSERVED. WITH L HAND #22 SL , PATIENT IS A/OX1 WITH 1:1 SITTER, KEPT CLEAN AND DRY, ALL NEEDS MET, ENDORSE TO INCOMING SHIFT.
--- NOTE | 2021-09-09 07:30 | NUR ---
MS RN OPENING NOTES RECEIVED PATIENT RESTING ON BED AND A/O X1, VIET[place]ESE SPEAKING. ON O2 AT 3LPM VIA NASAL CANNULA TOLERATING WELL. NO SOB NOTED. NOT IN DISTRESS. ON CARDIAC PUREED DIET. WITH NO SIGNS OF PAIN VIA FLACC. WITH IV ACCESS AT LEFT HAND G22, SALINE LOCKED, INTACT AND PATENT. SAFETY MEASURES IN PLACE. WITH SITTER AT BEDSIDE. CALL LIGHT WITHIN REACH. BED ON LOWEST AND LOCKED POSITION, SIDE RAILS UP X3. WILL CONTINUE TO MONITOR.
[2021-09-09] MEDS: LIPASE/PROTEASE/AMYLASE 1 EACH CAPSULE.DR PO SCH ×3 (07:56→17:32)
[2021-09-09 08:00] VITALS: BP 136/72
[2021-09-09] MEDS: SIMVASTATIN 20 MG TABLET PO SCH (08:44)
[2021-09-09] MEDS: ASPIRIN 81 MG TAB.CHEW PO SCH (08:44)
[2021-09-09] MEDS: clonazePAM 0.5 MG TABLET PO SCH (08:44)
[2021-09-09] MEDS: CALCIUM CARBONATE 500 MG TAB.CHEW PO SCH (08:44)
[2021-09-09] MEDS: LORATADINE 10 MG TABLET PO SCH (08:45)
[2021-09-09] MEDS: BENZTROPINE MESYLATE (1 MG) 1 MG TABLET PO SCH ×2 (08:45→16:20)
[2021-09-09] MEDS: METOPROLOL TARTRATE 25 MG TABLET PO SCH (08:45)
[2021-09-09] MEDS: FERROUS SULFATE (325 MG) 325 MG/TAB TABLET PO SCH ×2 (08:45→16:20)
[2021-09-09] MEDS ORDERED: ASPI-1169 PO (08:46)
[2021-09-09] MEDS: APIXABAN 2.5 MG TABLET PO SCH ×2 (08:46→16:21)
[2021-09-09] MEDS ORDERED: METO25TA6 PO (08:46)
[2021-09-09] MEDS: AUSTEDO 9 MG PO SCH (08:46)
[2021-09-09] MEDS ORDERED: APIX2.5T PO (08:46)
[2021-09-09] MEDS ORDERED: HYDR500C2 PO (08:46)
[2021-09-09] MEDS ORDERED: ALLO100T PO (08:46)
[2021-09-09] MEDS: HYDROXYUREA 500 MG CAPSULE PO SCH (08:46)
[2021-09-09] MEDS: ALLOPURINOL 100 MG TABLET PO SCH (08:48)
[2021-09-09] MEDS ORDERED: ONDANSETRON 4 MG TAB.RAPDIS SL PRN (14:30)
[2021-09-09 16:00] VITALS: BP 123/67
[2021-09-09] MEDS: MAG HYDROX/AL HYDROX/SIMETH 30 ML UDC PO PRN (17:09)
--- NOTE | 2021-09-09 17:45 | NUR ---
MS RECORDAK OPERATOR NOTES PATIENT WAS SEEN BY DR. HALL AND ORDERED PATIENT FOR DISCHARGE. FOR DISCHARGE TO HOME. DISCHARGE INSTRUCTION AND EDUCATION PROVIDED TO PATIENT AND DAUGHTER AND EXPLAINED MEDICATIONS AND PRESCRIPTIONS. DAUGHTER VERBALIZED UNDERSTANDING. DISCHARGE FORM AND BELONGINGS LIST FORM SIGNED BY PATIENT. ALL BELONGINGS ARE ACCOUNTED FOR. NAME WRIST BAND AND IV LINE REMOVED. PATIENT WAS PICKED UP BY AMBULANCE PERSONNEL IN STABLE CONDITION FOR TRANSPORTATION TO HOME. MD AND CHARGE NURSE ARE AWARE OF THE DISCHARGE.
== END 2021-09-09 17:40 | disposition home or self-care (01) | DRG 871 ==
LOC: ER 21:03 → TELE 08-30 02:41 → MED 09-02 07:58
PROVIDERS: ATTEND Nurse Practitioner Acute Care
PROC: 05H533Z Insertion of Infusion Device into Right Subclavian Vein, Percutaneous Approach (ICD-10-PCS; principal; 2021-09-02)
PROC: B546ZZA Ultrasonography of Right Subclavian Vein, Guidance (ICD-10-PCS; 2021-09-02)
PROC: 07DR3ZX Extraction of Iliac Bone Marrow, Percutaneous Approach, Diagnostic (ICD-10-PCS; 2021-09-03)
DX: A41.9 Sepsis, unspecified organism (principal); I21.4 Non-ST elevation (NSTEMI) myocardial infarction; J15.9 Unspecified bacterial pneumonia; N17.0 Acute kidney failure with tubular necrosis; E88.3 Tumor lysis syndrome; I69.351 Hemiplegia and hemiparesis following cerebral infarction affecting right dominant side; I13.0 Hypertensive heart and chronic kidney disease with heart failure and stage 1 through stage 4 chronic kidney disease, or unspecified chronic kidney disease; R18.8 Other ascites; J90 Pleural effusion, not elsewhere classified; I82.621 Acute embolism and thrombosis of deep veins of right upper extremity; T82.868A Thrombosis due to vascular prosthetic devices, implants and grafts, initial encounter; J84.9 Interstitial pulmonary disease, unspecified; D68.9 Coagulation defect, unspecified; G24.01 Drug induced subacute dyskinesia; I50.9 Heart failure, unspecified; N18.9 Chronic kidney disease, unspecified; Z20.822 Contact with and (suspected) exposure to COVID-19; D73.5 Infarction of spleen; D72.821 Monocytosis (symptomatic); D75.839 Thrombocytosis, unspecified; E78.5 Hyperlipidemia, unspecified; F03.90 Unspecified dementia, unspecified severity, without behavioral disturbance, psychotic disturbance, mood disturbance, and anxiety; Z79.01 Long term (current) use of anticoagulants; Z79.82 Long term (current) use of aspirin; R65.20 Severe sepsis without septic shock; Z88.0 Allergy status to penicillin; I69.331 Monoplegia of upper limb following cerebral infarction affecting right dominant side; R16.1 Splenomegaly, not elsewhere classified; I05.0 Rheumatic mitral stenosis; I35.0 Nonrheumatic aortic (valve) stenosis; E11.22 Type 2 diabetes mellitus with diabetic chronic kidney disease; I27.20 Pulmonary hypertension, unspecified; K86.81 Exocrine pancreatic insufficiency; Y84.8 Other medical procedures as the cause of abnormal reaction of the patient, or of later complication, without mention of misadventure at the time of the procedure; Y92.230 Patient room in hospital as the place of occurrence of the external cause; E61.1 Iron deficiency; I25.10 Atherosclerotic heart disease of native coronary artery without angina pectoris
CPT/HCPCS: 36410; 36415; 71045-TC; 71250-TC; 76705-TC; 80048-TC; 80053-TC; 80061-TC; 80076-TC; 80202-TC; 81001; 82272-TC; 82570-TC; 82728-TC; 83540-TC; 83605-TC; 83615-TC; 83690-TC; 83735-TC; 83880; 84100-TC; 84155-TC; 84300-TC; 84484-TC; 84550-TC; 85025-TC; 85385-TC; 85610-TC; 85730-TC; 86704; 86706; 86803; 87040-TC; 87081-TC; 87086-TC; 87340; 87806; 93307-TC; 93970-TC; 93971-TC; 97116-TC; 97530-TC; A6253; C9803; G0378; J1644; J2185; J2270; J2405; J3370; J3490; J7030; J7040; J7050; J7060; J7120; Q0162; Q9967

== ENCOUNTER 2023-08-26 13:36 | Inpatient (IN) | payer MEDICARE, OTHER ==
[~2023-08-26] VITALS: Ht 157.5 cm; Wt 68.9 kg
[~2023-08-26 13:36] MED LIST changes: +ALLO100T PO; -ALPR0.5T8 PO; +APIX2.5T PO; +HYDR500C2 PO; +METO25TA6 PO
[2023-08-26 14:59] LABS: BASOPHILS # (AUTO) 0.1 K/uL (0.0-0.2); BASOPHILS % (AUTO) 1.5 % (0.0-2.0); EOSINOPHILS # (AUTO) 0.2 K/uL (0.0-0.7); EOSINOPHILS % (AUTO) 2.3 % (0.0-6.0); HEMATOCRIT 29 % (33-45); HEMOGLOBIN 9.3 g/dL (11.5-14.8); LYMPHOCYTES # (AUTO) 0.8 K/uL (0.8-4.8); LYMPHOCYTES % (AUTO) 12.8 % (20.0-44.0); MEAN CORPUSCULAR HEMOGLOBIN 29 PG (26.0-33.0); MEAN CORPUSCULAR HGB CONC 32 g/dl (31.0-36.0); MEAN CORPUSCULAR VOLUME 89 fL (82-100); MONOCYTES # (AUTO) 0.5 K/uL (0.1-1.30); MONOCYTES % (AUTO) 7.5 % (2.0-12.0); NEUTROPHILS % (AUTO) 75.9 % (43.0-81.0); PLATELET COUNT (AUTO) 110 K/uL (150-450); RED BLOOD CELL COUNT(AUTO) 3.24 MIL/uL (4.0-5.2); WHITE BLOOD COUNT (AUTO) 6.6 K/uL (4.3-11.0)
[2023-08-26 15:18] LABS: INR 1.03 (0.91-1.10); PARTIAL THROMBOPLASTIN TIME 26.8 SEC (24.3-34.3); PROTHROMBIN TIME 10.9 SECS (9.2-11.1)
[2023-08-26 15:45] LABS: ALANINE AMINOTRANSFERASE 10 U/L (12-78); ALBUMIN 3.2 g/dL (3.4-5.0); ALKALINE PHOSPHATASE 59 U/L (46-116); ASPARTATE AMINOTRANSFERASE 18 U/L (15-37); BILIRUBIN,DIRECT 0.1 mg/dL (0.0-0.2); BILIRUBIN,TOTAL 0.8 mg/dL (0.2-1.0); CALCIUM, SERUM 9.1 mg/dL (8.5-10.1); CARBON DIOXIDE 26 mmol/L (21-32); CHLORIDE 99 mmol/L (98-107); GLUCOSE 178 mg/dL (74-106); POTASSIUM 3.8 mmol/L (3.5-5.1); SODIUM SERUM 136 mmol/L (136-145); TOTAL PROTEIN, SERUM 7.1 g/dL (6.4-8.2); UREA NITROGEN, BLOOD 25 mg/dL (7-18)
[2023-08-26 19:27] LABS: APPEARANCE,URINE CLEAR (CLEAR); BILIRUBIN,URINE NEGATIVE (NEGATIVE); BLOOD, URINE TRACE-INTA Ery/uL (NEGATIVE); COLOR,URINE YELLOW (YELLOW); KETONES,URINE NEGATIVE (NEGATIVE); LEUKOCYTE ESTERASE ,URINE 1+ (NEGATIVE); NITRITE, URINE NEGATIVE (NEGATIVE); PH,URINE 5.5 (5.0-8.0); PROTEIN,URINE NEGATIVE (NEGATIVE); UGLUCOSE NEGATIVE (NEGATIVE); UROBILINOGEN,URINE 0.2 EU/dL (0.2)
[2023-08-26 19:47] LABS: RBC,URINE 0-2 /HPF (0-2)
[2023-08-26 19:48] LABS: ADD URINE CULTURE YES; BACTERIA,URINE Moderate /HPF (None Seen); SQUAMOUS EPITHELIAL CELL,UR Moderate /HPF (None Seen)
[2023-08-26] MEDS ORDERED: hydrALAZINE HCL IV 20 MG VIAL IV PRN (22:00)
[2023-08-26] MEDS ORDERED: MORPHINE SULFATE INJ 2 MG/ML DISP.SYRIN IV PRN (22:00)
[2023-08-26] MEDS ORDERED: ONDANSETRON HCL/PF 4 MG/2 ML VIAL IVP PRN (22:00)
[2023-08-26] MEDS ORDERED: CEFTRIAXONE 1 G in IV D5W 50 ML IV SCH (22:00)
[2023-08-26] MEDS ORDERED: ALBUTEROL FS 2.5 MG/0.5 ML VIAL.NEB NEB PRN (22:00)
[2023-08-26] MEDS ORDERED: CEFTRIAXONE 1GM BAG (ER ONLY) 50 ML IV ONE (22:06)
[2023-08-26] MEDS: IV NS 0.9% 1,000 ML IV SCH (22:06)
[2023-08-26] MEDS: ZOLPIDEM TARTRATE 5 MG TABLET PO SCH (22:56)
[2023-08-26] MEDS ORDERED: AZITHROMYCIN 500 MG VIAL ONE (23:23)
[2023-08-26] MEDS: AZITHROMYCIN 500 MG in IV D5W 250 ML IV SCH (23:48)
[2023-08-27] VITALS (11 sets, daily range): BP systolic 96–105; BP diastolic 52–67; TEMP 97.2–98.4; O2SAT 93–100
[2023-08-27] MEDS ORDERED: IPRATROPIUM/ALBUTEROL INHALER IH SCH
[2023-08-27] MEDS: IPRATROPIUM NEB FS 0.5 MG/2.5 ML AMPUL.NEB IH SCH ×4 (02:07→19:59)
[2023-08-27] MEDS: ALBUTEROL FS 2.5 MG/0.5 ML VIAL.NEB NEB SCH ×4 (02:07→19:59)
[2023-08-27 06:04] LABS: BASOPHILS # (AUTO) 0.1 K/uL (0.0-0.2); BASOPHILS % (AUTO) 2.1 % (0.0-2.0); EOSINOPHILS # (AUTO) 0.2 K/uL (0.0-0.7); EOSINOPHILS % (AUTO) 3.7 % (0.0-6.0); HEMATOCRIT 24 % (33-45); HEMOGLOBIN 8.1 g/dL (11.5-14.8); MEAN CORPUSCULAR HEMOGLOBIN 29 PG (26.0-33.0); MEAN CORPUSCULAR HGB CONC 33 g/dl (31.0-36.0); MEAN CORPUSCULAR VOLUME 86 fL (82-100); MONOCYTES # (AUTO) 0.4 K/uL (0.1-1.30); MONOCYTES % (AUTO) 8.1 % (2.0-12.0); NEUTROPHILS # (AUTO) 3.7 K/uL (1.8-8.9); NEUTROPHILS % (AUTO) 68.1 % (43.0-81.0); PLATELET COUNT (AUTO) 96 K/uL (150-450); RED BLOOD CELL COUNT(AUTO) 2.83 MIL/uL (4.0-5.2); RED CELL DISTRIBUTION WIDTH 20.7 % (11.5-15.0); WHITE BLOOD COUNT (AUTO) 5.5 K/uL (4.3-11.0)
[2023-08-27 06:32] LABS: ALANINE AMINOTRANSFERASE 14 U/L (12-78); ALKALINE PHOSPHATASE 56 U/L (46-116); ASPARTATE AMINOTRANSFERASE 13 U/L (15-37); BILIRUBIN,TOTAL 0.6 mg/dL (0.2-1.0); CALCIUM, SERUM 8.6 mg/dL (8.5-10.1); CARBON DIOXIDE 30 mmol/L (21-32); CHLORIDE 102 mmol/L (98-107); CREATININE 2.1 mg/dL (0.6-1.3); GLUCOSE 176 mg/dL (74-106); PHOSPHORUS 3.7 mg/dL (2.5-4.9); POTASSIUM 3.2 mmol/L (3.5-5.1); SODIUM SERUM 139 mmol/L (136-145); TOTAL PROTEIN, SERUM 6.3 g/dL (6.4-8.2); UREA NITROGEN, BLOOD 25 mg/dL (7-18)
[2023-08-27] MEDS ORDERED: LIPASE/PROTEASE/AMYLASE 1 EACH CAPSULE.DR PO PRN (07:00)
[2023-08-27] MEDS: ASPIRIN 81 MG TAB.CHEW PO SCH (08:33)
[2023-08-27] MEDS: clonazePAM 0.5 MG TABLET PO SCH (08:34)
[2023-08-27] MEDS: LIPASE/PROTEASE/AMYLASE 1 EACH CAPSULE.DR PO SCH ×3 (08:34→17:38)
[2023-08-27] MEDS: BENZTROPINE MESYLATE (1 MG) 1 MG TABLET PO SCH ×2 (08:34→17:38)
[2023-08-27] MEDS: ALLOPURINOL 100 MG TABLET PO SCH (08:34)
[2023-08-27] MEDS: APIXABAN 2.5 MG TABLET PO SCH ×2 (08:36→21:59)
[2023-08-27] MEDS: METOPROLOL TARTRATE 25 MG TABLET PO SCH ×2 (08:36→21:00)
[2023-08-27] MEDS ORDERED: HYDROXYUREA 500 MG CAPSULE PO SCH (09:00)
[2023-08-27 09:07] LABS: EOSINOPHILS % (MANUAL) 3 % (0-4); LYMPHOCYTES % (MANUAL) 15 % (16-48); MONOCYTES % (MANUAL) 12 % (0-11.0); NEUTROPHILS % (MANUAL) 70 (42-76)
[2023-08-27 09:08] LABS: PLATELET ESTIMATE DECREASED
[2023-08-27 09:10] LABS: ANISOCYTOSIS 1+
[2023-08-27 09:11] LABS: OVALOCYTES 1+; TEAR DROP CELLS 1+
[2023-08-27 09:12] LABS: STOMATOCYTES 2+
[2023-08-27] MEDS ORDERED: POTASSIUM CHLORIDE 20 MEQ TAB.PRT.SR PO SCH (10:30)
[2023-08-27] MEDS: IV NS 0.9% 1,000 ML IV SCH (10:53)
[2023-08-27] MEDS ORDERED: FURO20TA4 PO (11:56)
[2023-08-27] MEDS ORDERED: ESOM40CA52 PO (11:56)
[2023-08-27] MEDS ORDERED: ALPR1TAB7 PO (11:56)
[2023-08-27] MEDS ORDERED: DEUT9TAB PO (11:56)
[2023-08-27] MEDS ORDERED: JAKAFI PO (11:56)
[2023-08-27] MEDS ORDERED: CARV12.52 PO (11:56)
[2023-08-27] MEDS ORDERED: VALS1TAB4 PO (11:56)
[2023-08-27] MEDS ORDERED: JAKAFI 5 MG PO SCH (12:30)
[2023-08-27 12:40] LABS: URIC ACID 5.9 mg/dL (2.6-7.2)
[2023-08-27] MEDS ORDERED: EPOETIN ALFA (10,000 UNIT) 10,000 UNIT/ML VIAL SQ ONE (15:00)
[2023-08-27] MEDS: ACETAMINOPHEN 325 MG TABLET PO PRN (18:20)
[2023-08-27] MEDS: ZOLPIDEM TARTRATE 5 MG TABLET PO SCH (21:56)
[2023-08-27] MEDS: AUSTEDO 9 MG PO SCH (21:57)
[2023-08-27] MEDS: AZITHROMYCIN 500 MG in IV D5W 250 ML IV SCH (22:00)
[2023-08-27] MEDS: SIMVASTATIN 20 MG TABLET PO SCH (22:08)
[2023-08-27] MEDS: CEFTRIAXONE 1 G in IV D5W 50 ML IV SCH (23:12)
[2023-08-28] VITALS (10 sets, daily range): BP systolic 113–124; BP diastolic 64–89; TEMP 97.5–99.1; O2SAT 85–99
[2023-08-28] MEDS: IPRATROPIUM NEB FS 0.5 MG/2.5 ML AMPUL.NEB IH SCH ×4 (01:35→20:23)
[2023-08-28] MEDS: ALBUTEROL FS 2.5 MG/0.5 ML VIAL.NEB NEB SCH ×4 (01:35→20:23)
[2023-08-28] MEDS: ACETAMINOPHEN 325 MG TABLET PO PRN (03:00)
[2023-08-28 06:25] LABS: BASOPHILS # (AUTO) 0.1 K/uL (0.0-0.2); BASOPHILS % (AUTO) 1.3 % (0.0-2.0); EOSINOPHILS # (AUTO) 0.2 K/uL (0.0-0.7); EOSINOPHILS % (AUTO) 1.9 % (0.0-6.0); HEMATOCRIT 27 % (33-45); HEMOGLOBIN 9.1 g/dL (11.5-14.8); LYMPHOCYTES # (AUTO) 0.8 K/uL (0.8-4.8); MEAN CORPUSCULAR HEMOGLOBIN 29 PG (26.0-33.0); MEAN CORPUSCULAR HGB CONC 33 g/dl (31.0-36.0); MEAN CORPUSCULAR VOLUME 87 fL (82-100); MONOCYTES # (AUTO) 0.4 K/uL (0.1-1.30); MONOCYTES % (AUTO) 4.5 % (2.0-12.0); NEUTROPHILS # (AUTO) 7.7 K/uL (1.8-8.9); NEUTROPHILS % (AUTO) 83.3 % (43.0-81.0); PLATELET COUNT (AUTO) 121 K/uL (150-450); RED BLOOD CELL COUNT(AUTO) 3.14 MIL/uL (4.0-5.2); RED CELL DISTRIBUTION WIDTH 20.7 % (11.5-15.0); WHITE BLOOD COUNT (AUTO) 9.3 K/uL (4.3-11.0)
[2023-08-28 06:45] LABS: ALANINE AMINOTRANSFERASE 14 U/L (12-78); ALBUMIN 3.2 g/dL (3.4-5.0); ALKALINE PHOSPHATASE 60 U/L (46-116); ASPARTATE AMINOTRANSFERASE 15 U/L (15-37); BILIRUBIN,TOTAL 0.5 mg/dL (0.2-1.0); CALCIUM, SERUM 8.9 mg/dL (8.5-10.1); CARBON DIOXIDE 26 mmol/L (21-32); CHLORIDE 104 mmol/L (98-107); CREATININE 1.9 mg/dL (0.6-1.3); GLUCOSE 194 mg/dL (74-106); MAGNESIUM 2.1 mg/dL (1.8-2.4); PHOSPHORUS 3.4 mg/dL (2.5-4.9); POTASSIUM 4.2 mmol/L (3.5-5.1); SODIUM SERUM 140 mmol/L (136-145); TOTAL PROTEIN, SERUM 6.9 g/dL (6.4-8.2); UREA NITROGEN, BLOOD 27 mg/dL (7-18)
[2023-08-28] MEDS: LIPASE/PROTEASE/AMYLASE 1 EACH CAPSULE.DR PO SCH ×3 (07:40→17:19)
[2023-08-28] MEDS: ALLOPURINOL 100 MG TABLET PO SCH (08:40)
[2023-08-28] MEDS: METOPROLOL TARTRATE 25 MG TABLET PO SCH ×2 (08:40→21:30)
[2023-08-28] MEDS: clonazePAM 0.5 MG TABLET PO SCH (08:41)
[2023-08-28] MEDS: ASPIRIN 81 MG TAB.CHEW PO SCH (08:41)
[2023-08-28] MEDS: BENZTROPINE MESYLATE (1 MG) 1 MG TABLET PO SCH ×2 (08:41→16:11)
[2023-08-28] MEDS: AUSTEDO 9 MG PO SCH ×2 (08:44→21:28)
[2023-08-28] MEDS: APIXABAN 2.5 MG TABLET PO SCH ×2 (08:45→21:31)
[2023-08-28] MEDS: ZOLPIDEM TARTRATE 5 MG TABLET PO SCH (21:29)
[2023-08-28] MEDS: SIMVASTATIN 20 MG TABLET PO SCH (21:29)
[2023-08-28] MEDS: AZITHROMYCIN 500 MG in IV D5W 250 ML IV SCH (21:32)
[2023-08-28] MEDS: CEFTRIAXONE 1 G in IV D5W 50 ML IV SCH (23:09)
[2023-08-29 01:25] VITALS: O2SAT 96
[2023-08-29 01:40] VITALS: O2SAT 97; O2SAT 99
[2023-08-29] MEDS: ALBUTEROL FS 2.5 MG/0.5 ML VIAL.NEB NEB SCH ×2 (01:51→07:14)
[2023-08-29] MEDS: IPRATROPIUM NEB FS 0.5 MG/2.5 ML AMPUL.NEB IH SCH ×2 (01:51→07:14)
[2023-08-29 05:05] LABS: APPEARANCE,URINE CLOUDY (CLEAR); BILIRUBIN,URINE NEGATIVE (NEGATIVE); BLOOD, URINE 1+ Ery/uL (NEGATIVE); COLOR,URINE YELLOW (YELLOW); KETONES,URINE NEGATIVE (NEGATIVE); LEUKOCYTE ESTERASE ,URINE TRACE (NEGATIVE); NITRITE, URINE NEGATIVE (NEGATIVE); PH,URINE 5.5 (5.0-8.0); PROTEIN,URINE 1+ mg/dl (NEGATIVE); UGLUCOSE NEGATIVE (NEGATIVE); UROBILINOGEN,URINE 0.2 EU/dL (0.2)
[2023-08-29 05:40] LABS: ADD URINE CULTURE NO; BACTERIA,URINE Few /HPF (None Seen); MUCUS,URINE Few /LPF (None Seen)
[2023-08-29 05:52] LABS: BASOPHILS # (AUTO) 0.1 K/uL (0.0-0.2); EOSINOPHILS # (AUTO) 0.1 K/uL (0.0-0.7); EOSINOPHILS % (AUTO) 1.4 % (0.0-6.0); HEMATOCRIT 24 % (33-45); HEMOGLOBIN 7.9 g/dL (11.5-14.8); LYMPHOCYTES # (AUTO) 1.2 K/uL (0.8-4.8); LYMPHOCYTES % (AUTO) 14.2 % (20.0-44.0); MEAN CORPUSCULAR HEMOGLOBIN 28 PG (26.0-33.0); MEAN CORPUSCULAR HGB CONC 33 g/dl (31.0-36.0); MEAN CORPUSCULAR VOLUME 86 fL (82-100); MONOCYTES # (AUTO) 0.6 K/uL (0.1-1.30); MONOCYTES % (AUTO) 7.5 % (2.0-12.0); NEUTROPHILS # (AUTO) 6.2 K/uL (1.8-8.9); NEUTROPHILS % (AUTO) 75.9 % (43.0-81.0); PLATELET COUNT (AUTO) 123 K/uL (150-450); RED BLOOD CELL COUNT(AUTO) 2.79 MIL/uL (4.0-5.2); RED CELL DISTRIBUTION WIDTH 20.7 % (11.5-15.0); WHITE BLOOD COUNT (AUTO) 8.2 K/uL (4.3-11.0)
[2023-08-29 06:06] LABS: ALANINE AMINOTRANSFERASE 11 U/L (12-78); ALBUMIN 2.8 g/dL (3.4-5.0); ALKALINE PHOSPHATASE 54 U/L (46-116); ASPARTATE AMINOTRANSFERASE 15 U/L (15-37); BILIRUBIN,TOTAL 0.7 mg/dL (0.2-1.0); CALCIUM, SERUM 8.6 mg/dL (8.5-10.1); CARBON DIOXIDE 29 mmol/L (21-32); CHLORIDE 105 mmol/L (98-107); CREATININE 1.7 mg/dL (0.6-1.3); GLUCOSE 162 mg/dL (74-106); MAGNESIUM 2.2 mg/dL (1.8-2.4); PHOSPHORUS 3.1 mg/dL (2.5-4.9); POTASSIUM 4.1 mmol/L (3.5-5.1); SODIUM SERUM 141 mmol/L (136-145); TOTAL PROTEIN, SERUM 6.4 g/dL (6.4-8.2); UREA NITROGEN, BLOOD 23 mg/dL (7-18)
[2023-08-29 06:33] LABS: ANISOCYTOSIS 1+; BAND % (MANUAL) 2 % (0.0-5.0); LYMPHOCYTES % (MANUAL) 9 % (16-48); MONOCYTES % (MANUAL) 7 % (0-11.0); MYELOCYTES % 1 % (0-0); NEUTROPHILS % (MANUAL) 81 (42-76); OVALOCYTES 1+; PLATELET ESTIMATE DECREASED
[2023-08-29 07:14] VITALS: O2SAT 88
[2023-08-29 07:26] VITALS: O2SAT 99
[2023-08-29] MEDS: LIPASE/PROTEASE/AMYLASE 1 EACH CAPSULE.DR PO SCH (08:13)
[2023-08-29 08:40] VITALS: BP 135/80; TEMP 97.9; O2SAT 100
[2023-08-29] MEDS: ASPIRIN 81 MG TAB.CHEW PO SCH (09:13)
[2023-08-29 09:15] VITALS: BP 133/67
[2023-08-29] MEDS: METOPROLOL TARTRATE 25 MG TABLET PO SCH (09:15)
[2023-08-29] MEDS: clonazePAM 0.5 MG TABLET PO SCH (09:17)
[2023-08-29] MEDS: ALLOPURINOL 100 MG TABLET PO SCH (09:17)
[2023-08-29] MEDS: BENZTROPINE MESYLATE (1 MG) 1 MG TABLET PO SCH (09:17)
[2023-08-29] MEDS: AUSTEDO 9 MG PO SCH (09:18)
[2023-08-29] MEDS: APIXABAN 2.5 MG TABLET PO SCH (09:19)
== END 2023-08-29 11:00 | disposition home health service (06) | DRG 194 ==
LOC: ER 13:49 → MED 21:29
PROVIDERS: ADMIT Internal Medicine
DX: J15.9 Unspecified bacterial pneumonia (principal); I69.351 Hemiplegia and hemiparesis following cerebral infarction affecting right dominant side; I48.91 Unspecified atrial fibrillation; D46.9 Myelodysplastic syndrome, unspecified; F03.90 Unspecified dementia, unspecified severity, without behavioral disturbance, psychotic disturbance, mood disturbance, and anxiety; D63.1 Anemia in chronic kidney disease; D69.6 Thrombocytopenia, unspecified; E11.22 Type 2 diabetes mellitus with diabetic chronic kidney disease; E78.5 Hyperlipidemia, unspecified; H54.61 Unqualified visual loss, right eye, normal vision left eye; Z66 Do not resuscitate; N18.30 Chronic kidney disease, stage 3 unspecified; Z79.82 Long term (current) use of aspirin; Z88.0 Allergy status to penicillin; Z20.822 Contact with and (suspected) exposure to COVID-19; I69.398 Other sequelae of cerebral infarction; G24.01 Drug induced subacute dyskinesia; Z79.01 Long term (current) use of anticoagulants; Z79.899 Other long term (current) drug therapy; D75.839 Thrombocytosis, unspecified; I12.9 Hypertensive chronic kidney disease with stage 1 through stage 4 chronic kidney disease, or unspecified chronic kidney disease
CPT/HCPCS: 36415; 70450-TC; 71045-TC; 80048-TC; 80053-TC; 80076-TC; 81001; 82728-TC; 83540-TC; 83735-TC; 83880; 84100-TC; 84484-TC; 84550-TC; 85025-TC; 85730-TC; 87086-TC; 94799-TC; A4223; C9803; G0378; J0456; J0696; J0885; J7030; J7060